=== PATIENT | male | born 1945 | race Two or more races ===

== ENCOUNTER → 2016-12-17 | Outpatient (CLI) | payer OTHER ==
[~2016-12-17] MED LIST: ATEN50TA PO; KLOR-CON PO; OME20GT; PHENERGAN; TRIA25CA PO
[2016-12-17 08:05] LABS: Basophils # (auto) 0 uL; Basophils % (auto) 0.3 % (0.0-2.0); CONDITION Y; Eosinophils # (auto) 0.2 uL; Eosinophils % (auto) 3.2 % (0.0-7.0); Hematocrit 44.7 % (41.0-53.0); Hemoglobin 15.3 g/dL (13.5-17.5); Lymphocytes # (auto) 1.8 uL; Lymphocytes % (auto) 30.2 % (10.0-50.0); Mean Corpuscular Hemoglobin 30.3 pg (28.0-32.0); Mean Corpuscular Hgb Conc. 34.2 g/dL (32.0-36.0); Mean Corpuscular Volume 88.6 fL (80.0-100.0); Mean Platelet Volume 9.3 fL (7.4-10.4); Monocytes # (auto) 0.6 uL; Monocytes % (auto) 10.5 % (0.0-12.0); Neutrophils # (auto) 3.4 uL; Neutrophils % (auto) 55.8 % (37.0-80.0); Platelet Count (auto) 212 10^3/uL (140-450)
[2016-12-17 08:25] LABS: Albumin 3.4 g/dL (3.4-5.0); Bilirubin, Total 0.5 mg/dL (0.2-1.0); Calcium 8.4 mg/dL (8.5-10.1); Potassium 3.9 mmol/L (3.5-5.1); Total Protein 6.8 g/dL (6.4-8.2)
== END | disposition home or self-care (01) ==
LOC: LAB 06:24
PROVIDERS: ATTEND Internal Medicine
DX: E11.9 Type 2 diabetes mellitus without complications (principal); I10 Essential (primary) hypertension
CPT/HCPCS: 36415; 80053; 80061; 82043; 82607; 83036; 84439; 84443; 85025; 85652

== ENCOUNTER → 2017-12-30 | Outpatient (CLI) | payer OTHER | END | disposition home or self-care (01) | LOC: XYW 08:04 | PROVIDERS: ATTEND Internal Medicine | DX: I08.2 Rheumatic disorders of both aortic and tricuspid valves (principal); R06.00 Dyspnea, unspecified; I27.20 Pulmonary hypertension, unspecified | CPT/HCPCS: 93306 ==

== ENCOUNTER → 2018-05-27 | Outpatient (CLI) | payer OTHER ==
[2018-05-27 08:14] LABS: Albumin 3.5 g/dL (3.4-5.0); Calcium 8.8 mg/dL (8.5-10.1); Potassium 4.7 mmol/L (3.5-5.1)
[2018-05-27 08:18] LABS: BUN/Creatinine Ratio 16.2; Bilirubin, Total 0.7 mg/dL (0.2-1.0); Total Protein 7.1 g/dL (6.4-8.2)
== END | disposition home or self-care (01) ==
LOC: LAB 07:24
PROVIDERS: ATTEND Internal Medicine
DX: E11.9 Type 2 diabetes mellitus without complications (principal); E78.5 Hyperlipidemia, unspecified
CPT/HCPCS: 36415; 80053; 83036; 83721

== ENCOUNTER → 2018-12-02 | Outpatient (CLI) | payer OTHER ==
[2018-12-02 09:15] LABS: Alanine Aminotransferase 60 U/L (16-61); Aspartate Aminotransferase 42 U/L (15-37); Cholesterol 178 mg/dL (< 200); HDL Cholesterol 47 mg/dL (40-59); LDL Cholesterol 103 mg/dL (< 100); Triglycerides 143 mg/dL (< 150)
== END | disposition home or self-care (01) ==
LOC: LAB 07:41
PROVIDERS: ATTEND Internal Medicine
DX: E78.00 Pure hypercholesterolemia, unspecified (principal); E11.9 Type 2 diabetes mellitus without complications
CPT/HCPCS: 36415; 80061; 83036; 84450; 84460

== ENCOUNTER → 2018-12-02 | Outpatient (CLI) | payer OTHER | END | disposition home or self-care (01) | LOC: LAB 09:12 | PROVIDERS: ATTEND Internal Medicine | DX: Z12.11 Encounter for screening for malignant neoplasm of colon (principal) | CPT/HCPCS: 82270 ==

== ENCOUNTER → 2019-09-06 | Outpatient (CLI) | payer OTHER ==
[2019-09-06 10:14] LABS: Basophils # (auto) 0 10 ^3/uL (0-0.2); Basophils % (auto) 0.6 % (0.0-2.0); Eosinophils # (auto) 0.1 10 ^3/uL (0-0.8); Hematocrit 44.4 % (41.0-53.0); Hemoglobin 15.1 g/dL (13.5-17.5); Lymphocytes # (auto) 1.3 10 ^3/uL (0.4-5.4); Lymphocytes % (auto) 19.9 % (10.0-50.0); Mean Corpuscular Hemoglobin 29.7 pg (28.0-32.0); Mean Corpuscular Hgb Conc. 33.9 g/dL (32.0-36.0); Mean Corpuscular Volume 87.5 fL (80.0-100.0); Monocytes # (auto) 0.6 10 ^3/uL (0-1.3); Monocytes % (auto) 9.2 % (0.0-12.0); Neutrophils # (auto) 4.5 10 ^3/uL (1.6-8.6); Neutrophils % (auto) 68.3 % (37.0-80.0); Nucleated Red Blood Cells % 0.1 %; Platelet Count (auto) 193 10^3/uL (140-450); Red Blood Cells 5.08 10^6/uL (4.5-5.90); Red Cell Distribution Width 13.7 % (11.8-14.3); White Blood Cell 6.6 10^3/uL (4.4-10.8)
[2019-09-06 10:57] LABS: Albumin 3.4 g/dL (3.4-5.0); Calcium 8.5 mg/dL (8.5-10.1); Potassium 3.8 mmol/L (3.5-5.1)
[2019-09-06 11:01] LABS: BUN/Creatinine Ratio 18.5; Bilirubin, Total 0.6 mg/dL (0.2-1.0); Total Protein 6.9 g/dL (6.4-8.2); Uric Acid 5.1 mg/dL (3.5-7.2)
== END | disposition home or self-care (01) ==
LOC: LAB 09:46
PROVIDERS: ATTEND Internal Medicine
DX: E11.65 Type 2 diabetes mellitus with hyperglycemia (principal); I10 Essential (primary) hypertension; M25.541 Pain in joints of right hand
CPT/HCPCS: 36415; 80053; 82043; 83036; 84439; 84443; 84550; 85025

== ENCOUNTER → 2021-02-05 | Outpatient (CLI) | payer OTHER ==
[2021-02-05 07:44] LABS: Urine Bacteria NONE SEEN /hpf (None Seen); Urine Blood Negative /uL (Negative); Urine Mucus FEW (None Seen); Urine Specific Gravity 1.025 (1.001-1.035); Urine WBC <1 /hpf (0 - 3)
[2021-02-05 07:54] LABS: Basophils # (auto) 0 10 ^3/uL (0-0.2); Basophils % (auto) 0.2 % (0.0-2.0); Eosinophils # (auto) 0.1 10 ^3/uL (0-0.8); Eosinophils % (auto) 2.9 % (0.0-7.0); Hematocrit 41.6 % (41.0-53.0); Hemoglobin 14.3 g/dL (13.5-17.5); Lymphocytes # (auto) 1.3 10 ^3/uL (0.4-5.4); Lymphocytes % (auto) 25.5 % (10.0-50.0); Mean Corpuscular Hemoglobin 30.1 pg (28.0-32.0); Mean Corpuscular Hgb Conc. 34.5 g/dL (32.0-36.0); Mean Corpuscular Volume 87.2 fL (80.0-100.0); Monocytes # (auto) 0.5 10 ^3/uL (0-1.3); Monocytes % (auto) 10.1 % (0.0-12.0); Neutrophils # (auto) 3.2 10 ^3/uL (1.6-8.6); Neutrophils % (auto) 61.3 % (37.0-80.0); Nucleated Red Blood Cells % 0.2 %; Red Blood Cells 4.77 10^6/uL (4.5-5.90); Red Cell Distribution Width 13.8 % (11.8-14.3); White Blood Cell 5.2 10^3/uL (4.4-10.8)
[2021-02-05 08:06] LABS: Albumin 3.2 g/dL (3.4-5.0); Calcium 9.2 mg/dL (8.5-10.1)
[2021-02-05 08:12] LABS: BUN/Creatinine Ratio 13.5; Bilirubin, Total 0.5 mg/dL (0.2-1.0); Total Protein 6.6 g/dL (6.4-8.2)
[2021-02-05 10:04] LABS: Free T4 (Free Thyroxine) 1.33 ng/dL (0.89-1.76); Prostate Specific Antigen 1.63 ng/mL (0.0-4.0)
== END | disposition home or self-care (01) ==
LOC: LAB 07:07
PROVIDERS: ATTEND Internal Medicine
DX: E11.9 Type 2 diabetes mellitus without complications (principal); I10 Essential (primary) hypertension
CPT/HCPCS: 36415; 80053; 80061; 81001; 82043; 82607; 83036; 84153; 84439; 84443; 85025; 85652

== ENCOUNTER 2021-05-15 16:20 | Emergency (ER) | payer OTHER ==
[~2021-05-15] VITALS: Ht 160 cm; Wt 86.2 kg
[2021-05-15 19:05] LABS: Basophils # (auto) 0 10 ^3/uL (0-0.2); Basophils % (auto) 0.5 % (0.0-2.0); Eosinophils # (auto) 0.1 10 ^3/uL (0-0.8); Eosinophils % (auto) 2.2 % (0.0-7.0); Hematocrit 37.9 % (41.0-53.0); Hemoglobin 12.8 g/dL (13.5-17.5); Lymphocytes # (auto) 1.4 10 ^3/uL (0.4-5.4); Lymphocytes % (auto) 23.3 % (10.0-50.0); Mean Corpuscular Hemoglobin 29.1 pg (28.0-32.0); Mean Corpuscular Hgb Conc. 33.9 g/dL (32.0-36.0); Mean Corpuscular Volume 85.7 fL (80.0-100.0); Monocytes # (auto) 0.7 10 ^3/uL (0-1.3); Monocytes % (auto) 11.6 % (0.0-12.0); Neutrophils # (auto) 3.7 10 ^3/uL (1.6-8.6); Neutrophils % (auto) 62.4 % (37.0-80.0); Nucleated Red Blood Cells % 0.1 %; Red Blood Cells 4.42 10^6/uL (4.5-5.90); Red Cell Distribution Width 15.3 % (11.8-14.3); White Blood Cell 5.9 10^3/uL (4.4-10.8)
[2021-05-15 19:23] LABS: Albumin 3.5 g/dL (3.4-5.0); BUN/Creatinine Ratio 17.4; Calcium 9.4 mg/dL (8.5-10.1); Potassium 4.3 mmol/L (3.5-5.1)
[2021-05-15 19:25] LABS: Bilirubin, Total 0.9 mg/dL (0.2-1.0); Total Protein 7.3 g/dL (6.4-8.2)
[2021-05-15] MEDS ORDERED: methylPREDNISolone SOD SUCC 125 MG/2 ML VL IV ONE (20:00)
[2021-05-16 03:24] LABS: Urine Bacteria NONE SEEN /hpf (None Seen); Urine Blood Negative /uL (Negative); Urine Specific Gravity 1.004 (1.001-1.035); Urine WBC 1 /hpf (0 - 3)
[2021-05-16 07:25] VITALS: BP 175/88
== END 2021-05-16 07:33 | disposition home or self-care (01) ==
LOC: ER 16:20
DX: U07.1 COVID-19 (principal); J20.9 Acute bronchitis, unspecified; E11.9 Type 2 diabetes mellitus without complications; I10 Essential (primary) hypertension; K21.9 Gastro-esophageal reflux disease without esophagitis
CPT/HCPCS: 36415; 71045; 80053; 81001; 82728; 84484; 85025; 85379; 86141; 87426; 96374; 99285; J2930

== ENCOUNTER 2021-08-30 13:25 | Emergency (ER) | payer OTHER ==
[~2021-08-30] VITALS: Ht 160 cm; Wt 86.2 kg
[2021-08-30 13:26] VITALS: BP 162/71
[2021-08-30] MEDS ORDERED: ACETAMINOPHEN 500 MG TAB PO ONE (14:00)
[2021-08-30] MEDS ORDERED: CEPH500C PO ×2 (15:21→15:23)
== END 2021-08-30 15:31 | disposition home or self-care (01) ==
LOC: ER 13:25
DX: S01.01XA Laceration without foreign body of scalp, initial encounter (principal); I10 Essential (primary) hypertension; E11.9 Type 2 diabetes mellitus without complications; K21.9 Gastro-esophageal reflux disease without esophagitis; Z79.899 Other long term (current) drug therapy; W01.198A Fall on same level from slipping, tripping and stumbling with subsequent striking against other object, initial encounter; Y93.89 Activity, other specified; Y92.89 Other specified places as the place of occurrence of the external cause; Y99.8 Other external cause status
CPT/HCPCS: 12002; 70450

== ENCOUNTER → 2021-09-09 | Outpatient (CLI) | payer OTHER ==
[~2021-09-09] MED LIST changes: +CEPH500C PO
== END | disposition home or self-care (01) ==
LOC: XYW 13:28
PROVIDERS: ATTEND Internal Medicine
DX: I08.3 Combined rheumatic disorders of mitral, aortic and tricuspid valves (principal); I48.91 Unspecified atrial fibrillation; I27.20 Pulmonary hypertension, unspecified
CPT/HCPCS: 93306

== ENCOUNTER → 2021-09-09 | Outpatient (CLI) | payer OTHER ==
[2021-09-09 07:23] LABS: Basophils # (auto) 0 10 ^3/uL (0-0.2); Basophils % (auto) 0.4 % (0.0-2.0); Eosinophils # (auto) 0.3 10 ^3/uL (0-0.8); Eosinophils % (auto) 3.5 % (0.0-7.0); Hematocrit 41.3 % (41.0-53.0); Hemoglobin 14.1 g/dL (13.5-17.5); Lymphocytes # (auto) 1.7 10 ^3/uL (0.4-5.4); Lymphocytes % (auto) 23.4 % (10.0-50.0); Mean Corpuscular Hgb Conc. 34.3 g/dL (32.0-36.0); Mean Corpuscular Volume 84.7 fL (80.0-100.0); Monocytes # (auto) 0.8 10 ^3/uL (0-1.3); Monocytes % (auto) 11.3 % (0.0-12.0); Neutrophils # (auto) 4.4 10 ^3/uL (1.6-8.6); Neutrophils % (auto) 61.4 % (37.0-80.0); Nucleated Red Blood Cells % 0.1 %; Red Blood Cells 4.87 10^6/uL (4.5-5.90); Red Cell Distribution Width 14.7 % (11.8-14.3); White Blood Cell 7.2 10^3/uL (4.4-10.8)
[2021-09-09 07:24] LABS: Urine Bacteria NONE SEEN /hpf (None Seen); Urine Blood Negative /uL (Negative); Urine Specific Gravity 1.013 (1.001-1.035); Urine WBC 6 /hpf (0 - 3)
[2021-09-09 07:46] LABS: Albumin 3.5 g/dL (3.4-5.0); Calcium 9.7 mg/dL (8.5-10.1); Potassium 4.1 mmol/L (3.5-5.1)
[2021-09-09 07:51] LABS: BUN/Creatinine Ratio 15.7; Bilirubin, Total 0.8 mg/dL (0.2-1.0); Total Protein 7.3 g/dL (6.4-8.2)
[2021-09-09 09:31] LABS: Free T4 (Free Thyroxine) 1.14 ng/dL (0.89-1.76)
[2021-09-09 09:32] LABS: Prostate Specific Antigen 2.05 ng/mL (0.0-4.0)
== END | disposition home or self-care (01) ==
LOC: LAB 06:45
PROVIDERS: ATTEND Internal Medicine
DX: I48.0 Paroxysmal atrial fibrillation (principal); E11.9 Type 2 diabetes mellitus without complications; I10 Essential (primary) hypertension
CPT/HCPCS: 36415; 80053; 80061; 81001; 82043; 82607; 83036; 83735; 84153; 84439; 84443; 85025; 85652

== ENCOUNTER → 2022-01-26 | Outpatient (CLI) | payer MEDICARE, OTHER ==
[2022-01-26 09:10] LABS: Albumin 3.5 g/dL (3.4-5.0); Potassium 4.5 mmol/L (3.5-5.1)
[2022-01-26 09:14] LABS: BUN/Creatinine Ratio 16.8; Bilirubin, Total 0.8 mg/dL (0.2-1.0); Total Protein 6.7 g/dL (6.4-8.2)
== END | disposition home or self-care (01) ==
LOC: LAB 08:08
PROVIDERS: ATTEND Internal Medicine
DX: I10 Essential (primary) hypertension (principal); I48.91 Unspecified atrial fibrillation; E11.9 Type 2 diabetes mellitus without complications
CPT/HCPCS: 36415; 80053; 83036; 83721

== ENCOUNTER → 2023-05-06 | Outpatient (CLI) | payer OTHER ==
[2023-05-06 13:25] LABS: Basophils # (auto) 0 10 ^3/uL (0-0.2); Basophils % (auto) 0.4 % (0.0-2.0); Eosinophils # (auto) 0.1 10 ^3/uL (0-0.8); Eosinophils % (auto) 1.3 % (0.0-7.0); Hematocrit 42.9 % (41.0-53.0); Hemoglobin 14.3 g/dL (13.5-17.5); Lymphocytes # (auto) 1.3 10 ^3/uL (0.4-5.4); Mean Corpuscular Hemoglobin 29.4 pg (28.0-32.0); Mean Corpuscular Hgb Conc. 33.2 g/dL (32.0-36.0); Mean Corpuscular Volume 88.5 fL (80.0-100.0); Monocytes # (auto) 0.8 10 ^3/uL (0-1.3); Monocytes % (auto) 12.4 % (0.0-12.0); Neutrophils # (auto) 3.9 10 ^3/uL (1.6-8.6); Neutrophils % (auto) 63.9 % (37.0-80.0); Red Blood Cells 4.85 10^6/uL (4.5-5.90); Red Cell Distribution Width 14.6 % (11.8-14.3); White Blood Cell 6.1 10^3/uL (4.4-10.8)
[2023-05-06 14:20] LABS: Alanine Aminotransferase 44 U/L (7-40); Albumin 4.5 g/dL (3.2-4.8); Alkaline Phosphatase 96 U/L (46-116); Anion Gap 9 (5-15); Aspartate Aminotransferase 42 U/L (13-40); BUN/Creatinine Ratio 9.7 (10.0-20.0); Blood Urea Nitrogen 10 mg/dL (9-23); Calcium 9.4 mg/dL (8.5-10.1); Carbon Dioxide 23 mmol/L (20-30); Chloride 106 mmol/L (98-107); Glucose 109 mg/dL (74-106); Sodium 138 mmol/L (136-145)
[2023-05-06 15:26] LABS: Magnesium 2.1 mg/dL (1.6-2.6)
[2023-05-06 16:27] LABS: Erythrocyte Sedimentation Rate 12 mm/hr (0-20)
== END | disposition home or self-care (01) ==
LOC: LAB 13:07
PROVIDERS: ATTEND Internal Medicine
DX: E06.5 Other chronic thyroiditis (principal); I48.20 Chronic atrial fibrillation, unspecified; R06.00 Dyspnea, unspecified
CPT/HCPCS: 36415; 80053; 83735; 84484; 85025; 85379; 85652

== ENCOUNTER → 2023-05-24 | Outpatient (CLI) | payer OTHER | END | disposition home or self-care (01) | LOC: XYW 08:01 | PROVIDERS: ATTEND Student in an Organized Health Care Education/Training Program | DX: I35.8 Other nonrheumatic aortic valve disorders (principal); R06.02 Shortness of breath | CPT/HCPCS: 93306 ==

== ENCOUNTER → 2023-07-14 | Outpatient (CLI) | payer OTHER ==
[~2023-07-14] VITALS: Ht 167.6 cm; Wt 90.7 kg
[2023-07-14] MEDS: ADENOSINE 76 MG in GIVE UN-DILUTED 0 ML IV ONE (11:07)
== END | disposition home or self-care (01) ==
LOC: XYW 09:43
PROVIDERS: ATTEND Student in an Organized Health Care Education/Training Program
DX: I13.0 Hypertensive heart and chronic kidney disease with heart failure and stage 1 through stage 4 chronic kidney disease, or unspecified chronic kidney disease (principal); I50.30 Unspecified diastolic (congestive) heart failure; N18.2 Chronic kidney disease, stage 2 (mild); R06.02 Shortness of breath; I48.21 Permanent atrial fibrillation; I77.810 Thoracic aortic ectasia; I27.20 Pulmonary hypertension, unspecified
CPT/HCPCS: 78452; 93017; A9500; J0153

== ENCOUNTER → 2023-10-01 | Outpatient (CLI) | payer OTHER ==
[2023-10-01 07:54] LABS: Chloride 109 mmol/L (98-107); Potassium 4.3 mmol/L (3.5-5.1); Sodium 142 mmol/L (136-145)
[2023-10-01 07:55] LABS: Anion Gap 5 (5-15); Calcium 9.9 mg/dL (8.5-10.1); Carbon Dioxide 28 mmol/L (20-30)
[2023-10-01 07:58] LABS: Creatinine, Urine 102.63 mg/dL (30.0-125.0)
[2023-10-01 08:00] LABS: BUN/Creatinine Ratio 13.8 (10.0-20.0); Blood Urea Nitrogen 19 mg/dL (9-23); Glucose 124 mg/dL (74-106)
== END | disposition home or self-care (01) ==
LOC: LAB 07:04
PROVIDERS: ATTEND Internal Medicine
DX: E11.39 Type 2 diabetes mellitus with other diabetic ophthalmic complication (principal)
CPT/HCPCS: 36415; 80048; 82043; 82570; 83036

== ENCOUNTER → 2023-10-07 | Outpatient (CLI) | payer OTHER ==
[2023-10-07 07:23] LABS: Basophils # (auto) 0 10 ^3/uL (0-0.2); Basophils % (auto) 0.5 % (0.0-2.0); Eosinophils # (auto) 0.2 10 ^3/uL (0-0.8); Eosinophils % (auto) 2.3 % (0.0-7.0); Hematocrit 41.3 % (41.0-53.0); Hemoglobin 13.8 g/dL (13.5-17.5); Lymphocytes # (auto) 1.4 10 ^3/uL (0.4-5.4); Lymphocytes % (auto) 21.6 % (10.0-50.0); Mean Corpuscular Hemoglobin 28.8 pg (28.0-32.0); Mean Corpuscular Hgb Conc. 33.5 g/dL (32.0-36.0); Monocytes # (auto) 0.7 10 ^3/uL (0-1.3); Neutrophils # (auto) 4.3 10 ^3/uL (1.6-8.6); Neutrophils % (auto) 64.6 % (37.0-80.0); Nucleated Red Blood Cells % 0.1 %; Red Cell Distribution Width 14.8 % (11.8-14.3); White Blood Cell 6.6 10^3/uL (4.4-10.8)
[2023-10-07 07:44] LABS: Chloride 108 mmol/L (98-107); Potassium 3.9 mmol/L (3.5-5.1); Sodium 140 mmol/L (136-145)
[2023-10-07 07:45] LABS: Anion Gap 6 (5-15); Calcium 9.6 mg/dL (8.5-10.1); Carbon Dioxide 26 mmol/L (20-30)
[2023-10-07 07:50] LABS: BUN/Creatinine Ratio 11.3 (10.0-20.0); Blood Urea Nitrogen 13 mg/dL (9-23); Glucose 124 mg/dL (74-106)
== END | disposition home or self-care (01) ==
LOC: LAB 06:56
DX: I35.0 Nonrheumatic aortic (valve) stenosis (principal)
CPT/HCPCS: 36415; 80048; 85025

== ENCOUNTER → 2023-10-21 | Outpatient (CLI) | payer OTHER ==
[2023-10-21 07:02] LABS: Urine Bacteria None Seen /hpf (None Seen)
[2023-10-21 07:15] LABS: Basophils # (auto) 0 10 ^3/uL (0-0.2); Basophils % (auto) 0.2 % (0.0-2.0); Eosinophils # (auto) 0.1 10 ^3/uL (0-0.8); Hematocrit 42.9 % (41.0-53.0); Hemoglobin 14.3 g/dL (13.5-17.5); Lymphocytes # (auto) 1.4 10 ^3/uL (0.4-5.4); Lymphocytes % (auto) 17.5 % (10.0-50.0); Mean Corpuscular Hemoglobin 28.3 pg (28.0-32.0); Mean Corpuscular Hgb Conc. 33.2 g/dL (32.0-36.0); Mean Corpuscular Volume 85.2 fL (80.0-100.0); Monocytes # (auto) 0.7 10 ^3/uL (0-1.3); Monocytes % (auto) 8.6 % (0.0-12.0); Neutrophils # (auto) 5.9 10 ^3/uL (1.6-8.6); Neutrophils % (auto) 72.7 % (37.0-80.0); Red Blood Cells 5.04 10^6/uL (4.5-5.90); Red Cell Distribution Width 15.4 % (11.8-14.3); White Blood Cell 8.1 10^3/uL (4.4-10.8)
[2023-10-21 07:16] LABS: Urine Blood Negative /uL (Negative); Urine Clarity Clear (Clear); Urine Color Light-Yellow (Yellow); Urine Protein, UAD 1+ (Negative); Urine Specific Gravity 1.018 (1.001-1.035); Urine Urobilinogen Normal (Negative); Urine WBC 2 /hpf (0 - 3)
[2023-10-21 07:55] LABS: Free T4 (Free Thyroxine) 0.89 ng/dL (0.89-1.76)
[2023-10-21 07:56] LABS: Alanine Aminotransferase 13 U/L (7-40); Albumin 4.3 g/dL (3.2-4.8); Alkaline Phosphatase 83 U/L (46-116); Anion Gap 5 (5-15); Aspartate Aminotransferase 8 U/L (13-40); BUN/Creatinine Ratio 11.4 (10.0-20.0); Bilirubin, Total 1.1 mg/dL (0.2-1.0); Blood Urea Nitrogen 13 mg/dL (9-23); Calcium 9.5 mg/dL (8.5-10.1); Carbon Dioxide 26 mmol/L (20-30); Chloride 107 mmol/L (98-107); Cholesterol 142 mg/dL (< 200); Glucose 98 mg/dL (74-106); HDL Cholesterol 39 mg/dL (40-59); LDL Cholesterol 92 mg/dL (< 100); Potassium 4.2 mmol/L (3.5-5.1); Sodium 138 mmol/L (136-145); Total Protein 6.8 g/dL (5.7-8.2); Triglycerides 126 mg/dL (< 150)
[2023-10-21 08:30] LABS: Erythrocyte Sedimentation Rate 4 mm/hr (0-20)
[2023-10-25 14:31] LABS: Creatinine, Urine < 3.00 mg/dL (30.0-125.0)
[2023-10-25 16:52] LABS: Patient Weight 189 lbs
[2023-10-25 16:53] LABS: Body Surface Area 1.95
[2023-10-25 16:54] LABS: Urine Total Volume, 24 Hours 1400 mL
[2023-10-25 17:12] LABS: Creatinine Clearance, Urine 2.19 mL/min (75-115)
== END | disposition home or self-care (01) ==
LOC: LAB 06:44
PROVIDERS: ATTEND Internal Medicine
DX: I11.0 Hypertensive heart disease with heart failure (principal); I50.30 Unspecified diastolic (congestive) heart failure; E11.9 Type 2 diabetes mellitus without complications; K86.1 Other chronic pancreatitis
CPT/HCPCS: 36415; 80053; 80061; 81001; 82043; 82575; 82607; 83036; 83880; 84439; 84443; 85025; 85652; 86301

== ENCOUNTER → 2023-11-17 | Outpatient (CLI) | payer OTHER ==
[2023-11-17 10:48] LABS: Basophils # (auto) 0.1 10 ^3/uL (0-0.2); Basophils % (auto) 0.7 % (0.0-2.0); Eosinophils # (auto) 0.1 10 ^3/uL (0-0.8); Eosinophils % (auto) 2.1 % (0.0-7.0); Hematocrit 43.7 % (41.0-53.0); Hemoglobin 14.7 g/dL (13.5-17.5); Lymphocytes # (auto) 1.5 10 ^3/uL (0.4-5.4); Lymphocytes % (auto) 21.4 % (10.0-50.0); Mean Corpuscular Hemoglobin 28.3 pg (28.0-32.0); Mean Corpuscular Hgb Conc. 33.6 g/dL (32.0-36.0); Mean Corpuscular Volume 84.4 fL (80.0-100.0); Monocytes # (auto) 0.6 10 ^3/uL (0-1.3); Monocytes % (auto) 9.2 % (0.0-12.0); Neutrophils # (auto) 4.6 10 ^3/uL (1.6-8.6); Neutrophils % (auto) 66.6 % (37.0-80.0); Red Blood Cells 5.18 10^6/uL (4.5-5.90); Red Cell Distribution Width 15.4 % (11.8-14.3)
[2023-11-17 11:04] LABS: INR 1.11 (0.9-1.15); Prothrombin Time 11.7 sec (9.3-11.8)
[2023-11-17 11:27] LABS: Alanine Aminotransferase 15 U/L (7-40); Albumin 4.2 g/dL (3.2-4.8); Alkaline Phosphatase 99 U/L (46-116); Amylase 35 U/L (30-118); Anion Gap 5 (5-15); Aspartate Aminotransferase 12 U/L (13-40); BUN/Creatinine Ratio 14.4 (10.0-20.0); Bilirubin, Total 0.8 mg/dL (0.2-1.0); Blood Urea Nitrogen 17 mg/dL (9-23); Calcium 9.7 mg/dL (8.7-10.4); Carbon Dioxide 24 mmol/L (20-30); Chloride 106 mmol/L (98-107); Glucose 259 mg/dL (74-106); Lipase 47 U/L (12-53); Potassium 4.2 mmol/L (3.5-5.1); Sodium 135 mmol/L (136-145); Total Protein 6.8 g/dL (5.7-8.2)
== END | disposition home or self-care (01) ==
LOC: LAB 10:25
PROVIDERS: ATTEND Internal Medicine Gastroenterology
DX: R93.3 Abnormal findings on diagnostic imaging of other parts of digestive tract (principal)
CPT/HCPCS: 36415; 80053; 82150; 83690; 85025; 85610; 86301

== ENCOUNTER → 2023-11-23 | Outpatient (CLI) | payer OTHER | END | disposition home or self-care (01) | LOC: LAB 08:44 | PROVIDERS: ATTEND Internal Medicine Gastroenterology | DX: R93.3 Abnormal findings on diagnostic imaging of other parts of digestive tract (principal) | CPT/HCPCS: 83497 ==

== ENCOUNTER → 2023-12-28 | Outpatient (CLI) | payer OTHER ==
[2023-12-28 07:20] LABS: Basophils # (auto) 0 10 ^3/uL (0-0.2); Basophils % (auto) 0.5 % (0.0-2.0); Eosinophils # (auto) 0.2 10 ^3/uL (0-0.8); Eosinophils % (auto) 2.2 % (0.0-7.0); Hematocrit 46.4 % (41.0-53.0); Hemoglobin 15.7 g/dL (13.5-17.5); Lymphocytes # (auto) 1.8 10 ^3/uL (0.4-5.4); Lymphocytes % (auto) 23.9 % (10.0-50.0); Mean Corpuscular Hemoglobin 28.6 pg (28.0-32.0); Mean Corpuscular Hgb Conc. 33.7 g/dL (32.0-36.0); Mean Corpuscular Volume 84.7 fL (80.0-100.0); Monocytes # (auto) 0.8 10 ^3/uL (0-1.3); Monocytes % (auto) 10.7 % (0.0-12.0); Neutrophils # (auto) 4.7 10 ^3/uL (1.6-8.6); Neutrophils % (auto) 62.7 % (37.0-80.0); Nucleated Red Blood Cells % 0.1 %; Red Blood Cells 5.48 10^6/uL (4.5-5.90); Red Cell Distribution Width 15.9 % (11.8-14.3); White Blood Cell 7.5 10^3/uL (4.4-10.8)
[2023-12-28 07:25] LABS: Chloride 103 mmol/L (98-107); Potassium 4.2 mmol/L (3.5-5.1); Sodium 138 mmol/L (136-145)
[2023-12-28 07:26] LABS: Anion Gap 7 (5-15); Calcium 9.6 mg/dL (8.7-10.4); Carbon Dioxide 28 mmol/L (20-30)
[2023-12-28 07:31] LABS: BUN/Creatinine Ratio 14.4 (10.0-20.0); Blood Urea Nitrogen 21 mg/dL (9-23); Glucose 274 mg/dL (74-106)
== END | disposition home or self-care (01) ==
LOC: LAB 06:55
DX: I35.0 Nonrheumatic aortic (valve) stenosis (principal)
CPT/HCPCS: 36415; 80048; 85025

== ENCOUNTER → 2024-01-06 | Outpatient (CLI) | payer OTHER | END | disposition home or self-care (01) | LOC: LAB 12:00 | PROVIDERS: ATTEND Internal Medicine | DX: K86.9 Disease of pancreas, unspecified (principal) | CPT/HCPCS: 36415; 82565; 84520 ==

== ENCOUNTER → 2024-01-28 | Outpatient (CLI) | payer OTHER ==
[2024-01-28 15:54] LABS: Urine Bacteria None Seen /hpf (None Seen)
[2024-01-28 16:01] LABS: Basophils # (auto) 0 10 ^3/uL (0-0.2); Basophils % (auto) 0.3 % (0.0-2.0); Eosinophils # (auto) 0.2 10 ^3/uL (0-0.8); Eosinophils % (auto) 3.1 % (0.0-7.0); Hematocrit 42.2 % (41.0-53.0); Hemoglobin 14.8 g/dL (13.5-17.5); Lymphocytes # (auto) 1.3 10 ^3/uL (0.4-5.4); Lymphocytes % (auto) 21.1 % (10.0-50.0); Mean Corpuscular Hemoglobin 29.5 pg (28.0-32.0); Mean Corpuscular Volume 84.1 fL (80.0-100.0); Monocytes # (auto) 0.5 10 ^3/uL (0-1.3); Monocytes % (auto) 8.5 % (0.0-12.0); Neutrophils # (auto) 4.1 10 ^3/uL (1.6-8.6); Nucleated Red Blood Cells % 0.1 %; Platelet Count (auto) 159 10^3/uL (140-450); Red Blood Cells 5.02 10^6/uL (4.5-5.90); Red Cell Distribution Width 15.5 % (11.8-14.3); White Blood Cell 6.2 10^3/uL (4.4-10.8)
[2024-01-28 16:06] LABS: Urine Blood Negative /uL (Negative); Urine Clarity Clear (Clear); Urine Color Light-Yellow (Yellow); Urine Protein, UAD Negative (Negative); Urine Urobilinogen 2 mg/dL (Negative); Urine WBC <1 /hpf (0 - 3); Urine pH 5.5 (5.0-9.0)
[2024-01-28 16:37] LABS: Alanine Aminotransferase 15 U/L (7-40); Albumin 4.5 g/dL (3.2-4.8); Alkaline Phosphatase 112 U/L (46-116); Anion Gap 5 (5-15); Aspartate Aminotransferase < 8 U/L (13-40); BUN/Creatinine Ratio 15.3 (10.0-20.0); Bilirubin, Total 0.9 mg/dL (0.2-1.0); Blood Urea Nitrogen 25 mg/dL (9-23); Calcium 9.8 mg/dL (8.7-10.4); Carbon Dioxide 29 mmol/L (20-30); Chloride 102 mmol/L (98-107); Glucose 322 mg/dL (74-106); Potassium 4.1 mmol/L (3.5-5.1); Sodium 136 mmol/L (136-145)
== END | disposition home or self-care (01) ==
LOC: LAB 15:37
PROVIDERS: ATTEND Internal Medicine
DX: N18.4 Chronic kidney disease, stage 4 (severe) (principal)
CPT/HCPCS: 36415; 80053; 81001; 85025

== ENCOUNTER 2024-10-12 17:21 | Inpatient (IN) | payer OTHER, MEDICAID ==
[~2024-10-12] VITALS: Ht 152.4 cm; Wt 92.6 kg
--- NOTE | 2024-10-12 17:50 | ED.PDOC ---
History of Present Illness HPI Comments 79-year-old male with PMHx DM, HTN, HLD presents with a chief complaint of chills, fever, nausea and vomiting. Patient is febrile in triage at 102.6F orally. Patient denies any abdomen pain or diarrhea, and is not currently vomiting in triage. Patients daughter reports that he had just seen his primary care provider, Dr. Gramajo, for his annual physical today and was feeling fine, but 2 hours later, began to feel symptoms. Patients blood sugar in triage was 132. Chief Complaint: Fever Time Seen by MD: 17:42 Primary Care Provider: RODERICK Reviewed Notes: Nurses Notes, Medications, Allergies Allergies: Coded Allergies: NO KNOWN ALLERGIES (Unverified , 02/21/10) Home Meds Active Scripts Cephalexin Monohydrate (Cephalexin) 500 Mg Cap, 500 MG PO QID for 7 Days, #28 CAP Prov:MAGGIE GERMAIN 08/30/21 Reported Medications [Klor-Con] No Conflict Check, 8 MG PO DAILY 09/02/12 Omeprazole (Prilosec Susp (For Gt)) 20 Mg Ss 02/21/10 [Phenergan] No Conflict Check 02/21/10 Hydrochlorothiazide W/Triamter (Hctz/Triamterene) 1 Cap Cap, 25 MG PO DAILY 02/21/10 Atenolol (Atenolol) 50 Mg Tab, 50 MG PO DAILY 02/21/10 Information Source: Patient Mode of Arrival: Ambulatory Severity: Moderate Timing: Hours Duration: Since onset Prehospital treatment: None Associated signs and symptoms The patient's complaint of fever Past Medical History PAST MEDICAL HISTORY: DM, GERD, HTN Family History Family History: Reviewed,noncontributory to illness Social History Smoker: Non-Smoker Alcohol: Denies ETOH Use Drugs: Denies Drug Use Lives In: Home Constitutional: reports: chills, fever; denies: diaphoresis, fatigue, malaise, sweats, weakness, others EENTM: denies: blurred vision, double vision, ear bleeding, ear discharge, ear drainage, ear pain, ear ringing, eye pain, eye redness, hearing loss, mouth pain, mouth swelling, nasal discharge, nose bleeding, nose congestion, nose pain, photophobia, tearing, throat pain, throat swelling, voice changes, others Respiratory: denies: cough, hemoptysis, orthopnea, SOB at rest, shortness of breath, SOB with excertion, stridor, wheezing, others Cardiovascular: denies: chest pain, dizzy spells, diaphoresis, Dyspnea on exertion, edema, irregular heart beat, left arm pain, lightheadedness, palpitations, PND, syncope, others Gastrointestinal: reports: nausea, vomiting; denies: abdomen distended, abdominal pain, blood streaked bowels, constipated, diarrhea, dysphagia, difficulty swallowing, hematemesis, melena, poor appetite, poor fluid intake, re ctal bleeding, rectal pain, others Genitourinary: denies: burning, dysuria, flank pain, frequency, hematuria, incontinence, penile discharge, penile sore, pain, testicle pain, testicle swelling, urgency, others Neurological: denies: dizziness, fainting, headache, left sided numbness, left sided weakness, numbness, paresthesia, pre-existing deficit, right sided numbness, right sided weakness, seizure, speech problems, tingling, tremors, weakness, others Musculoskeletal: denies: back pain, gout, joint pain, joint swelling, muscle pain, muscle stiffness, neck pain, others Integumetry: denies: bruises, change in color, change in hair/nails, dryness, laceration, lesions, lumps, rash, wounds, others Allergic/Immunocompromised: denies: Difficulty Healing, Frequent Infections, Hives, Itching, others Hematologic/Lymphatic: denies: anemia, blood clots, easy bleeding, easy bruising, swollen glands, others Endocrine: denies: excessive hunger, excessive sweating, excessive thirst, excessive urination, flushing, intolerance to cold, intolerance to heat, unexplained weight gain, unexplained weight loss, others Psychiatric: denies: anxiety, bipolar disorder, depression, hopeless, panic disorder, schizophrenia, sleepless, suicidal, others All Other Systems: Reviewed and Negative Physical Exam General Appearance: Moderate Distress HEENT: Pale Conjuntivae (L), Pale Conjuntivae (R), Pharynx Normal, TMs Normal Neck: Full Range of Motion, Non-Tender, Normal, Normal Inspection Respiratory: Chest Non-Tender, Decreased Breath Sounds, No Accessory Muscle Use, Respiratory Distress, Rhonchi Cardiovascular: No Edema, No JVD, No Murmur, No Gallop, Tachycardia Breast Exam: Deferred Gastrointestinal: No Organomegaly, Non Tender, No Pulsatile Mass, Normal Bowel Sounds, Soft Genitalia: Deferred Pelvic: Deferred Rectal: Deferred Extremities: No calf tenderness, Normal capillary refill, Normal inspection, Normal range of motion, Non-tender, No pedal edema Musculoskeletal : Apperance: Normal Neurologic: Alert, stone decorator II-XII nml as Tested, Motor Weakness, Normal Affect, Normal Mood, No Sensory Deficits Cerebellar Function: Unable to Test Reflexes: Normal Skin: Dry, Pallor, Warm Lymphatic: No Adenopathy Was a procedure done? Was a procedure done?: No EKG EKG : Pulse Rate (adult): 83 [place]: Normal Cardiac Rhythm: Afib Block: None Hypertrophy: None ST: Normal Differential Dx Considerations may include: Generalized weakness, pneumonia, dehydration, UTI X-Ray, Labs, Meds, VS Vital Signs Date Time Temp Pulse Resp B/P (MAP) Pulse Ox O2 Delivery O2 Flow Rate FiO2 10/12/24 19:57 97.6 93 23 154/72 (99) 96 97.6 10/12/24 19:53 93 23 96 Nasal Cannula* 3 32 10/12/24 19:14 97.6 10/12/24 18:10 100.5 10/12/24 17:55 90 26 93 Nasal Cannula* 2 28 10/12/24 17:55 100.5 82 26 169/85 (113) 92 100.5 10/12/24 17:52 83 10/12/24 17:49 83 10/12/24 17:32 102.6 94 24 167/95 (119) 93 102.6 Lab Test 10/12/24 19:29 10/12/24 18:42 10/12/24 18:18 10/12/24 17:52 Range/Units Troponin I High Sensitivity 8 5 </=54 ng/L SARS-CoV-2 Antigen (Rapid) Negative NEGATIVE White Blood Count 13.3 H 4.4-10.8 10^3/uL Red Blood Count 5.70 4.5-5.90 10^6/uL Hemoglobin 16.7 13.5-17.5 g/dL Hematocrit 49.3 41.0-53.0 % Mean Corpuscular Volume 86.5 80.0-100.0 fL Mean Corpuscular Hemoglobin 29.3 28.0-32.0 pg Mean Corpuscular Hemoglobin Concent 33.8 32.0-36.0 g/dL Red Cell Distribution Width 14.0 11.8-14.3 % Platelet Count 159 140-450 10^3/uL Mean Platelet Volume 9.2 6.9-10.8 fL Neutrophils (%) (Auto) 37.0-80.0 % Lymphocytes (%) (Auto) 10.0-50.0 % Monocytes (%) (Auto) 0.0-12.0 % Basophils (%) (Auto) 0.0-2.0 % Neutrophils # (Auto) 1.6-8.6 10 ^3/uL Lymphocytes # (Auto) 0.4-5.4 10 ^3/uL Monocytes # (Auto) 0-1.3 10 ^3/uL Differential Total Cells Counted 100.0 100 Neutrophils % (Manual) 83 H 37.0-80.0 Band Neutrophils % (Manual) 3 Lymphocytes % (Manual) 5 L 10.0-50.0 Monocytes % (Manual) 9 0-12 Eosinophils % (Manual) 0 0-7 Basophils % (Manual) 0 0.0-2.0 Metamyelocytes % (manual) 0 Myelocytes % (Manual) 0 Promyelocytes % (Manual) 0 Blast Cells % (Manual) 0 Reactive Lymphocytes 0 Platelet Estimate Adequate Anisocytosis (manual) Slight Sodium Level 140 136-145 mmol/L Potassium Level 3.9 3.5-5.1 mmol/L Chloride Level 108 H 98-107 mmol/L Carbon Dioxide Level 22 20-31 mmol/L Anion Gap 10 5-15 Blood Urea Nitrogen 17 9-23 mg/dL Creatinine 1.11 0.700-1.30 mg/dL Glomerular Filtration Rate Calc 67 >90 mL/min BUN/Creatinine Ratio 15.3 10.0-20.0 Serum Glucose 137 H 74-106 mg/dL Lactic Acid Level 2.0 0.4-2.0 mmol/L Calcium Level 10.9 H 8.7-10.4 mg/dL Urine Color Light-yellow Yellow Urine Clarity Clear Clear Urine pH 6.0 5.0-9.0 Urine Specific [place] 1.016 1.001-1.035 Urine Protein Trace H Negative Urine Ketones Negative Negative Urine Blood 1+ H Negative /uL Urine Nitrite Negative Negative Urine Bilirubin Negative Negative Urine Urobilinogen Normal Negative mg/dL Urine Leukocyte Esterase Negative Negative /uL Urine RBC 4 0 - 3 /hpf Urine Microscopic WBC 1 0-3 /HPF Urine Squamous Epithelial Cells None seen <5 /hpf Urine Bacteria None seen None Seen /hpf Urine Glucose Normal Normal mg/dL Test 10/12/24 17:36 Range/Units POC Glucose 132 H 70-106 mg/dl Current Medications Medications (Trade) Dose Ordered Sig/Radhika Route Start Time Stop Time Status Last Admin Acetaminophen (Tylenol Tablet) 650 mg ONCE ONCE PO 10/12/24 18:00 10/12/24 18:01 DC 10/12/24 18:10 Sodium Chloride 500 ml @ 500 mls/hr Q1H ONCE IVB 10/12/24 18:15 10/12/24 19:14 DC 10/12/24 18:15 Ceftriaxone Sodium 50 ml @ 100 mls/hr ONCE ONCE IV 10/12/24 19:00 10/12/24 19:29 DC 10/12/24 19:00 Vancomycin HCl 200 ml @ 200 mls/hr ONCE ONCE IV 10/12/24 19:00 10/12/24 19:59 DC 10/12/24 19:36 IV Hep-Lock was established The patient was given normal saline as a bolus. With a fever, the patient was given acetaminophen 650 mg p.o. The patient's CBC shows an elevated white blood cell count of 13.3 The rest of the CBC is within normal limits The chemistry panel is within normal limits. The urine test is negative At this time, the troponin level x2 is within normal range The chest x-ray shows: LUNGS: Central pulmonary vascular congestion. Prominence of bronchovascular ma rkings versus infiltrate in bilateral lung bases The CAT scan of the chest was also ordered in his negative The patient was started on Rocephin and vancomycin The patient is being admitted at this time Images Reviewed?: Images reviewed and evaluated by me Time of 1ST Reevaluation: 18:12 Reevaluation 1ST: Unchanged Patient Education/Counseling: Diagnosis, Treatment, Prognosis Family Education/Counseling: Diagnosis, Treatment, Prognosis Sepsis Sepsis Reasesment Focused Exam Orders: Laboratory Tests 10/12/24 18:18: Lactic Acid Level 2.0 Departure 1 Departure Time of Disposition: 20:29 Impression: Primary Impression: Generalized weakness Additional Impressions: Fever Qualified Codes: R50.9 - Fever, unspecified Diabetes Qualified Codes: E13.9 - Other specified diabetes mellitus without complications Disposition: 09 ADMITTED INPATIENT Admit to: Tele Condition: Fair Critical Care Note Critical Care Time?: Yes (45 min-critical care time only) Stability Stability form required: Yes Unstable for transfer: Telemetry monitoring (Telemetry monitoring required), ED Physician Assesment (Clinical assesment) Heart Score Heart Score: Heart Score Response (Comments) Value History N/A 0 EKG N/A 0 Age N/A 0 Risk Factors N/A 0 Troponin N/A 0 Total 0 I personally scribed for ANDREA ESTRADA MD ([email or web address]) on 10/12/24 at 17:50. Electronically submitted by Igor Erickson ([email or web address]). I personally scribed for ANDREA ESTRADA MD ([email or web address]) on 10/12/24 at 17:52. Electronically submitted by Igor Erickson ([email or web address]). ANDREA ESTRADA MD October 12, 2024 17:50
[2024-10-12 17:55] VITALS: PULSE 90; RESP 26; O2SAT 93
[2024-10-12] MEDS: ACETAMINOPHEN 325 MG TAB PO ONE (18:10)
[2024-10-12] MEDS: SODIUM CHLORIDE 0.9% 500 ML IVB ONE (18:15)
[2024-10-12 18:44] LABS: Hematocrit 49.3 % (41.0-53.0); Hemoglobin 16.7 g/dL (13.5-17.5); Mean Corpuscular Hemoglobin 29.3 pg (28.0-32.0); Mean Corpuscular Hgb Conc. 33.8 g/dL (32.0-36.0); Mean Corpuscular Volume 86.5 fL (80.0-100.0); Platelet Count (auto) 159 10^3/uL (140-450); White Blood Cell 13.3 10^3/uL (4.4-10.8)
[2024-10-12 18:45] LABS: Urine Bacteria None Seen /hpf (None Seen)
[2024-10-12 18:49] LABS: Basophils % (manual) 0 (0.0-2.0); Blast Cells 0; Eosinophils % (manual) 0 (0-7); Metamyelocytes % 0; Myelocytes % 0; Promyelocytes % 0; Reactive Lymphocytes 0
[2024-10-12 18:50] LABS: Potassium 3.9 mmol/L (3.5-5.1); Sodium 140 mmol/L (136-145)
[2024-10-12 18:51] LABS: Anion Gap 10 (5-15); Calcium 10.9 mg/dL (8.7-10.4); Carbon Dioxide 22 mmol/L (20-31); Chloride 108 mmol/L (98-107)
--- NOTE | 2024-10-12 18:53 | DVH ---
EXAM: XY CHEST PORTABLE REASON FOR EXAM: weakness TECHNIQUE: 1 view of the chest COMPARISON: CHEST PORTABLE on DOS: 05/15/21 FINDINGS/IMPRESSION: LUNGS: Central pulmonary vascular congestion. Prominence of bronchovascular markings versus infiltrat e in bilateral lung bases MEDIASTINUM: Unremarkable BONES: No acute osseous abnormality OTHER: None
[2024-10-12 18:56] LABS: BUN/Creatinine Ratio 15.3 (10.0-20.0); Blood Urea Nitrogen 17 mg/dL (9-23); Glucose 137 mg/dL (74-106)
[2024-10-12] MEDS: cefTRIAXone 1GM/50ML D5W 50 ML IV ONE (19:00)
[2024-10-12 19:06] LABS: Urine Blood 1+ /uL (Negative); Urine Clarity Clear (Clear); Urine Color Light-Yellow (Yellow); Urine Protein, UAD TRACE (Negative); Urine Specific Gravity 1.016 (1.001-1.035); Urine Squamous Epithelial Cell None Seen /hpf (<5); Urine Urobilinogen Normal (Negative); Urine WBC 1 /HPF (0-3)
--- NOTE | 2024-10-12 19:19 | DVH ---
Procedure: CT CHEST WITHOUT CONTRAST Reason for study/Clinical History: PNA Comparison Study: None Exam Date: 10/12/2024 06:35 PM TECHNIQUE: Multidetector CT of the chest was performed from the lung apices to the upper abdomen with out the use of intravenous contract. Axial, coronal and sagittal multiplanar reformats were performed . Radiation Dose Information: CT Dose: CTDI volume is 29.2 mGy. Dose-length product is 1061.99 mGy*cm The dose indicators for CT are the volume Computed Tomography (CT) Dose Index (CTDIvol) and the Dose Length Product (DLP), and are measured in units of mGy and mGy-cm, respectively. These indicators are not patient dose, but values generated from the CT scanner acquisition factors. The report includes radiation exposure data for exposures received during this examination. FINDINGS: Lower neck: Normal thyroid. Lungs: No focal consolidation, pleural effusion or pneumothorax. Heart/Vascular Structures: Normal heart size. No pericardial effusion. TAVR device in place Lymph Nodes: No adenopathy Pleura: No pleural effusion or significant pneumothorax. Musculoskeletal: No acute osseous abnormality. Soft tissues: Normal. Upper abdomen: Limited portions of the upper abdomen are unremarkable. IMPRESSION: 1. No acute intrathoracic abnormality. Radiation optimization: All CT scans at this facility use at least one of these dose optimization jorge hniques: automated exposure control mA and/or kV adjustment per patient size (includes targeted exam s where dose is matched to clinical indication) or iterative reconstruction.
[2024-10-12 19:21] LABS: Anisocytosis Slight; Band Neutrophils % (manual) 3; Lymphocytes % (manual) 5 (10.0-50.0); Monocytes % (manual) 9 (0-12); Platelet Estimate Adequate
[2024-10-12 19:34] LABS: COVID19 ANTIGEN SOFIA FIA NEGATIVE (NEGATIVE)
[2024-10-12] MEDS: VANCOMYCIN 1GM/200ML PM 200 ML IV ONE (19:36)
[2024-10-12 19:53] VITALS: PULSE 93; RESP 23; O2SAT 96
[2024-10-12] MEDS ORDERED: hydrALAZINE HCL 20 MG/ML VL IV PRN (21:30)
[2024-10-12] MEDS ORDERED: ONDANSETRON HCL 4 MG/2 ML VIAL IV PRN (21:30)
[2024-10-12] MEDS ORDERED: DEXTROSE (50%) 50ML SYRG IV PRN (21:30)
[2024-10-12] MEDS ORDERED: DOCUSATE SOD 100 MG CAP PO PRN (21:30)
[2024-10-12] MEDS ORDERED: HYDROcodone-ACET 5/325MG TAB PO PRN (21:30)
[2024-10-12] MEDS ORDERED: ACETAMINOPHEN 325 MG TAB PO PRN (21:30)
--- NOTE | 2024-10-12 21:39 | DVHHP2 ---
History of Present Illness Reason for Visit: Generalized weakness History of Present Illness The patient is a 79-year-old male with past medical history of GERD, hypertension, and diabetes mellitus who presented to [facility] ED with complaint of fever. Patient/family member reports he has been experiencing fever associated with chills, nausea, vomiting, getting worse that prompted this visit. Patient was seen and evaluated in the ED, laboratory data shows WBC 13.3, platelets 159, sodium 140, potassium 3.9, BUN 17, creatinine 1.11, glucose 137, calcium 10.9, lactic acid 2.0, troponin 8, blood pressure 154/72, heart rate 94, temperature 100.5 F trending down to 97.6 F, O2 saturation 96% on oxygen. Chest x-ray revealing central pulmonary vascular congestion, prominence of bronchovascular marking versus infiltrate in bilateral lung bases. Patient was started on IV antibiotic regimen Rocephin, please see medication orders section in the computer. On my assessment, patient denied chest pain, no headache, no dizziness, no diaphoresis, currently on oxygen, no nausea, no vomiting, no fever or chills at this moment. Patient was admitted for further evaluation and medical management. Past Medical History DM, GERD, HTN Past Surgical History Denies all surgeries Family History Reviewed, noncontributory to the management of this case. Past Social History The patient lives at home, denies smoking, alcohol or illicit drugs abuse. Review of Systems Constitutional: Yes: Fever, Chills, Weakness; No: Sweats, Malaise, Other Eyes: No: Pain, Vision change, Conjunctivae inflammation, Eyelid inflammation, Other, Redness ENT: No: Ear pain, Ear discharge, Nose pain, Nose discharge, Nose congestion, Mouth pain, Mouth swelling, Throat pain, Throat swelling, Other Respiratory: Shortness of breath; No: Cough, Dry, SOB with excertion, Wheezing, Hemoptysis, Pleuritic Pain, Sputum, Wheezing, Other Cardiovascular: No: Chest Pain, Palpitations, Orthopnea, Paroxysmal Noc. Dyspnea, Edema, Lt Headedness, Other Gastrointestinal: Nausea, Vomiting; No: Abdominal Pain, Diarrhea, Constipation, Melena, Hematochezia, Other Genitourinary: No Dysuria, No Frequency, No Incontinence, No Hematuria, No Retention, No Other Musculoskeletal: No: other, neck pain, shoulder pain, arm pain, back pain, hand pain, leg pain, foot pain Skin: No: Rash, Lesions, Jaundice, Bruising, Other Neurological: No: Weakness, Numbness, Incoordination, Change in speech, Confusion, Seizures, Other Allergies: Coded Allergies: NO KNOWN ALLERGIES (Unverified , 02/21/10) Medications Current Medications Medications Dose Ordered Sig/Radhika Route Start Time Stop Time Status Last Admin Dose Admin Ceftriaxone Sodium 50 ml @ 100 mls/hr DAILY@09 IV 10/13/24 09:00 UNV Azithromycin 250 ml @ 125 mls/hr DAILY IV 10/13/24 10:00 UNV Atenolol 50 mg DAILY PO 10/13/24 10:00 UNV Hydralazine HCl 10 mg Q6HP PRN IV 10/12/24 21:30 UNV Famotidine 20 mg DAILY IV 10/13/24 10:00 UNV Diagnostic Test (Pha) 1 strip ACHS 10/12/24 22:00 UNV Insulin Human Regular ACHS SC 10/12/24 22:00 UNV Dextrose 50 ml UD PRN IV 10/12/24 21:30 UNV Sodium Chloride 10 ml Q8HR IV 10/12/24 22:00 UNV Acetaminophen/ Hydrocodone Bitart 1 tab Q4HP PRN PO 10/12/24 21:30 UNV Ondansetron HCl 4 mg Q4HP PRN IV 10/12/24 21:30 UNV Docusate Sodium 100 mg BIDPRN PRN PO 10/12/24 21:30 UNV Acetaminophen 650 mg Q6HP PRN PO 10/12/24 21:30 UNV Exam Vital Signs Vital Signs Date Time Temp Pulse Resp B/P (MAP) Pulse Ox O2 Delivery O2 Flow Rate FiO2 10/12/24 19:57 97.6 93 23 154/72 (99) 96 97.6 10/12/24 19:53 Nasal Cannula* 3 32 General Appearance: Alert, Oriented X3, Cooperative, No acute distress HEENT: Atraumatic, PERRLA, EOMI, Mucous membr. moist/pink Respiratory: Normal air movement, Other (Diminished breath sounds) Cardiovascular: Regular rate, Normal S1, Normal S2, No murmurs Abdominal: Normal bowel sounds, Soft, No tenderness, No hepatospenomegaly, No masses Extremities: No clubbing, No cyanosis, No edema, Normal pulses, No tenderness/swelling Skin: No rashes, No breakdown, No significant lesion Neuro: Normal speech, Normal tone, Sensation intact, Cranial nerves 3-12 NL, Reflexes 2+, Other (Generalized weakness) Psych/Mental Status: Mental status NL, Mood NL Labs/Xrays Labs Test 10/12/24 21:13 10/12/24 18:42 10/12/24 18:18 10/12/24 17:52 Range/Units Troponin I High Sensitivity 12 </=54 ng/L SARS-CoV-2 Antigen (Rapid) Negative NEGATIVE White Blood Count 13.3 H 4.4-10.8 10^3/uL Red Blood Count 5.70 4.5-5.90 10^6/uL Hemoglobin 16.7 13.5-17.5 g/dL Hematocrit 49.3 41.0-53.0 % Mean Corpuscular Volume 86.5 80.0-100.0 fL Mean Corpuscular Hemoglobin 29.3 28.0-32.0 pg Mean Corpuscular Hemoglobin Concent 33.8 32.0-36.0 g/dL Red Cell Distribution Width 14.0 11.8-14.3 % Platelet Count 159 140-450 10^3/uL Mean Platelet Volume 9.2 6.9-10.8 fL Neutrophils (%) (Auto) 37.0-80.0 % Lymphocytes (%) (Auto) 10.0-50.0 % Monocytes (%) (Auto) 0.0-12.0 % Basophils (%) (Auto) 0.0-2.0 % Neutrophils # (Auto) 1.6-8.6 10 ^3/uL Lymphocytes # (Auto) 0.4-5.4 10 ^3/uL Monocytes # (Auto) 0-1.3 10 ^3/uL Differential Total Cells Counted 100.0 100 Neutrophils % (Manual) 83 H 37.0-80.0 Band Neutrophils % (Manual) 3 Lymphocytes % (Manual) 5 L 10.0-50.0 Monocytes % (Manual) 9 0-12 Eosinophils % (Manual) 0 0-7 Basophils % (Manual) 0 0.0-2.0 Metamyelocytes % (manual) 0 Myelocytes % (Manual) 0 Promyelocytes % (Manual) 0 Blast Cells % (Manual) 0 Reactive Lymphocytes 0 Platelet Estimate Adequate Anisocytosis (manual) Slight Sodium Level 140 136-145 mmol/L Potassium Level 3.9 3.5-5.1 mmol/L Chloride Level 108 H 98-107 mmol/L Carbon Dioxide Level 22 20-31 mmol/L Anion Gap 10 5-15 Blood Urea Nitrogen 17 9-23 mg/dL Creatinine 1.11 0.700-1.30 mg/dL Glomerular Filtration Rate Calc 67 >90 mL/min BUN/Creatinine Ratio 15.3 10.0-20.0 Serum Glucose 137 H 74-106 mg/dL Lactic Acid Level 2.0 0.4-2.0 mmol/L Calcium Level 10.9 H 8.7-10.4 mg/dL Urine Color Light-yellow Yellow Urine Clarity Clear Clear Urine pH 6.0 5.0-9.0 Urine Specific [place] 1.016 1.001-1.035 Urine Protein Trace H Negative Urine Ketones Negative Negative Urine Blood 1+ H Negative /uL Urine Nitrite Negative Negative Urine Bilirubin Negative Negative Urine Urobilinogen Normal Negative mg/dL Urine Leukocyte Esterase Negative Negative /uL Urine RBC 4 0 - 3 /hpf Urine Microscopic WBC 1 0-3 /HPF Urine Squamous Epithelial Cells None seen <5 /hpf Urine Bacteria None seen None Seen /hpf Urine Glucose Normal Normal mg/dL Test 10/12/24 17:36 Range/Units POC Glucose 132 H 70-106 mg/dl PATIENT: AZ MURILLOACCT: [id number] UNIT: [id number] : 1945 LOC: ER ROOM / BED: / AGE / SEX: 79 / M ADM STATUS: REG ER SERVICE 14 ORDERING PHYSICIAN: DUTCH ALBERT MD PROCEDURE(s): CX2CT - CHEST WITHOUT CONTRAST REASON: PNA ORDER NUMBER(s): [id number], ACCESSION NUMBER(s): [id number] Procedure: CT CHEST WITHOUT CONTRAST Reason for study/Clinical History: PNA Comparison Study: None Exam Date: 10/12/2024 06:35 PM TECHNIQUE: Multidetector CT of the chest was performed from the lung apices to the upper abdomen without the use of intravenous contract. Axial, coronal and sagittal multiplanar reformats were performed. Radiation Dose Information: CT Dose: CTDI volume is 29.2 mGy. Dose-length product is 1061.99 mGy*cm The dose indicators for CT are the volume Computed Tomography (CT) Dose Index (CTDIvol) and the Dose Length Product (DLP), and are measured in units of mGy an d mGy-cm, respectively. These indicators are not patient dose, but values generated from the CT scanner acquisition factors. The report includes radiation exposure data for exposures received during this examination. FINDINGS: Lower neck: Normal thyroid. Lungs: No focal consolidation, pleural effusion or pneumothorax. Heart/Vascular Structures: Normal heart size. No pericardial effusion. TAVR device in place Lymph Nodes: No adenopathy Pleura: No pleural effusion or significant pneumothorax. Musculoskeletal: No acute osseous abnormality. Soft tissues: Normal. Upper abdomen: Limited portions of the upper abdomen are unremarkable. IMPRESSION: 1. No acute intrathoracic abnormality. ORDERING PHYSICIAN: ANDREA ESTRADA MD PROCEDURE(s): CXRP - CHEST PORTABLE REASON: weakness ORDER NUMBER(s): [id number], ACCESSION NUMBER(s): [id number] EXAM: XY CHEST PORTABLE REASON FOR EXAM: weakness TECHNIQUE: 1 view of the chest COMPARISON: CHEST PORTABLE on DOS: 05/15/21 FINDINGS/IMPRESSION: LUNGS: Central pulmonary vascular congestion. Prominence of bronchovascular markings versus infiltrate in bilateral lung bases MEDIASTINUM: Unremarkable BONES: No acute osseous abnormality Assessment/Plan Assessment/Plan Generalized weakness Diabetes mellitus with hyperglycemia Fever, unspecified Leukocytosis, unspecified Pneumonia, unspecified organism Other specified diabetes mellitus without complications Plan 1. Admit to telemetry unit 2. Breathing treatment 3. Pain control management 4. IV antibiotic management 5. Management of fluids and electrolytes 6. Consultation for hospitalist 7. Diagnostic test chest x-ray 8. DVT prophylaxis-on aspirin 9. Repeat labs CBC, CMP in a.m. 10. Home medication reviewed and reconciled 11. Continue with current medical management 12. Treatment plan discussed with patient and RN. Patient verbalized understanding. Plan discussed with: Patient, Other (RN) My Orders Orders - RIYA HURLEY DNP Procedure Category Date Status Time Consistent DIET 10/13/24 Transmitted Carb(Ccho)Diabetes Breakfast Ceftriaxone 1gm/50ml PHA 10/13/24 Logged D5w (Rocephin) 09:00 Azithromycin 500mg/ PHA 10/13/24 Logged 250ml (Zithromax 50 10:00 Atenolol Tablet PHA 10/13/24 Logged (Tenormin Tablet) 10:00 Hydralazine Injection PHA 10/12/24 Logged (Apresoline Inject 21:30 Famotidine Injection PHA 10/13/24 Logged (Pepcid Injection) 10:00 Glucose Blood PHA 10/12/24 Logged (Accu-Chek Comfort 22:00 Insulin R (Human) PHA 10/12/24 Logged (Insulin R) 22:00 Dextrose 50% Syringe PHA 10/12/24 Logged 21:30 Allergies [facility] 10/12/24 In Process 21:26 Code Status CODE 10/12/24 Transmitted 21:26 Sodium Chloride Lock PHA 10/12/24 Logged (Saline Lock Ns) 22:00 Oxygen Per Hour RT 10/12/24 Transmitted 21:26 Hydrocodone-Acet [facility] 10/12/24 Logged 5/325mg Tab ([place] 21:30 Ondansetron Hcl PHA 10/12/24 Logged (Zofran) 21:30 Docusate Sodium [facility] 10/12/24 Logged Capsule (Colace 21:30 Complete Blood Count LAB 10/13/24 Verified 04:00 Comprehensive LAB 10/13/24 Verified Metabolic Panel 04:00 Condition: Serious [facility] 10/12/24 In Process 21:26 Acetaminophen Tablet [facility] 10/12/24 Logged (Tylenol Tablet) 21:30 Bedrest With Bathroom [facility] 10/12/24 In Process Privileg 21:26 Sequential [facility] 10/12/24 In Process Compression Device Admit ADMIT 10/12/24 Verified 21:37 Nitroglycerin [facility] 10/12/24 Verified Sublingual (Ntrostat 21:45 Morphine Sulfate [facility] 10/12/24 Verified Injection 21:45 Stat Ekg For Chest [facility] 10/12/24 Verified Pain 21:37 Notify Md Of Changes [facility] 10/12/24 Verified From Base 21:37 Distillery Miller For [facility] 10/12/24 Verified 24 Hours 21:37 Emergency Dysrhythmia [facility] 10/12/24 Verified Protocol 21:37 Rhythm Strips Once [facility] 10/12/24 Verified Every Shift 21:37 Oxygen By Nasal RT 10/12/24 Verified Cannula 21:37 Problem List: (1) Generalized weakness (2) Diabetes mellitus with hyperglycemia (3) Fever, unspecified (4) Leukocytosis, unspecified (5) Pneumonia, unspecified organism (6) Other specified diabetes mellitus without complications Date of Service: October 12, 2024 Billing Provider: RIYA HURLEY DNP Common Visit Codes: [id number] INP/OBS CARE (HIGH) RIYA HURLEY DNP October 12, 2024 21:39
[2024-10-12] MEDS ORDERED: NITROGLYCERIN 0.4 MG SL TAB SL PRN (21:45)
[2024-10-12] MEDS ORDERED: MORPHINE SULFATE INJ 2 MG/ml SYRG IV PRN (21:45)
[2024-10-12] MEDS: ACCU-CHEK COMFORT CURVE STRIP VI SCH (22:00)
[2024-10-12] MEDS: InsuLIN REG 1unit/0.01ml Soln (100units/ml) SC SCH (22:00)
[2024-10-12] MEDS: SODIUM CHLOR 0.9% PF (SALINE LOCK) 10ML VIAL/SYR IV SCH (22:00)
[2024-10-12 22:41] LABS: Rapid Influenza A Negative (Negative); Rapid Influenza B Negative (Negative)
[2024-10-13] VITALS (12 sets, daily range): BP systolic 92–127; BP diastolic 43–68; PULSE 44–95; RESP 17–20; TEMP 98.1–99.3; O2SAT 90–100
[2024-10-13 08:31] LABS: Basophils # (auto) 0 10 ^3/uL (0-0.2); Basophils % (auto) 0.1 % (0.0-2.0); Eosinophils # (auto) 0 10 ^3/uL (0-0.8); Hematocrit 43.8 % (41.0-53.0); Lymphocytes # (auto) 0.2 10 ^3/uL (0.4-5.4); Lymphocytes % (auto) 1.7 % (10.0-50.0); Mean Corpuscular Hemoglobin 29.6 pg (28.0-32.0); Mean Corpuscular Hgb Conc. 34.2 g/dL (32.0-36.0); Mean Corpuscular Volume 86.6 fL (80.0-100.0); Monocytes # (auto) 0.5 10 ^3/uL (0-1.3); Monocytes % (auto) 3.7 % (0.0-12.0); Neutrophils # (auto) 12.3 10 ^3/uL (1.6-8.6); Neutrophils % (auto) 94.5 % (37.0-80.0); Platelet Count (auto) 127 10^3/uL (140-450); Red Blood Cells 5.06 10^6/uL (4.5-5.90); Red Cell Distribution Width 14.2 % (11.8-14.3); White Blood Cell 13.1 10^3/uL (4.4-10.8)
[2024-10-13 08:51] LABS: Alanine Aminotransferase 19 U/L (7-40); Albumin 4.1 g/dL (3.2-4.8); Alkaline Phosphatase 75 U/L (46-116); Anion Gap 9 (5-15); Aspartate Aminotransferase 22 U/L (13-40); BUN/Creatinine Ratio 16.3 (10.0-20.0); Bilirubin, Total 1.2 mg/dL (0.2-1.0); Blood Urea Nitrogen 15 mg/dL (9-23); Calcium 9.6 mg/dL (8.7-10.4); Carbon Dioxide 22 mmol/L (20-31); Glucose 93 mg/dL (74-106); Potassium 3.6 mmol/L (3.5-5.1); Sodium 141 mmol/L (136-145); Total Protein 6.4 g/dL (5.7-8.2)
[2024-10-13 09:00] LABS: Chloride 110 mmol/L (98-107)
[2024-10-13] MEDS: FAMOTIDINE (10MG/ML) 2ML VL IV SCH (09:54)
[2024-10-13] MEDS: ATENOLOL 25 MG TAB PO SCH (09:55)
[2024-10-13] MEDS: cefTRIAXone 1GM/50ML D5W 50 ML IV SCH (09:56)
[2024-10-13] MEDS: AZITHROMYCIN 500MG/ 250ML 250 ML IV SCH (09:56)
--- NOTE | 2024-10-13 13:08 | DVHPN2 ---
Subjective Seen and examined at bedside, family at bedside. Patient has 2 bottles that are positive for Gram Positive. Will add Vancomycin. Repeat blood cultures. Will get sputum sample. Changes from previous H/P or p: No Changes Eyes: No Pain, No Vision change, No Conjunctivae inflammation, No Eyelid inflammation, No Other, No Redness ENT: No Ear pain, No Ear discharge, No Nose pain, No Nose discharge, No Nose congestion, No Mouth pain, No Mouth swelling, No Throat pain, No Throat swelling, No Other Cardiovascular: No Chest Pain, No Palpitations, No Orthopnea, No Paroxysmal Noc. Dyspnea, No Edema, No Lt Headedness, No Other Respiratory: No Cough, No Dry; Shortness of breath; No SOB with excertion, No Wheezing, No Hemoptysis, No Pleuritic Pain, No Sputum, No Other Gastrointestinal: No Nausea, No Vomiting, No Abdominal Pain, No Diarrhea, No Constipation, No Melena, No Hematochezia, No Other Genitourinary: No Dysuria, No Frequency, No Incontinence, No Hematuria, No Retention, No Other Musculoskeletal: No other, No neck pain, No shoulder pain, No arm pain, No back pain, No hand pain, No leg pain, No foot pain Skin: No Rash, No Lesions, No Jaundice, No Bruising, No Other Objective Vitals Vital Signs Date Time Temp Pulse Resp B/P (MAP) Pulse Ox O2 Delivery O2 Flow Rate FiO2 10/13/24 09:55 63 118/68 10/13/24 09:30 99.3 18 96 99.3 10/13/24 08:00 Nasal Cannula* 3 32 Intake/Output Intake and Output 10/13/24 07:00 Intake Total 850 ml Balance 850 ml Intake Oral 100 ml IV Total 750 ml General Appearance: Alert, Oriented X3, Cooperative, No acute distress Lungs: Clear to auscultation Cardiovascular: Regular rate, Normal S1, Normal S2 Abdomen: Normal bowel sounds, Soft Psych/Mental Status: Mental status NL Medications Current Medications Medications Dose Ordered Sig/Radhika Route Start Time Stop Time Status Last Admin Dose Admin Ceftriaxone Sodium 50 ml @ 100 mls/hr DAILY@09 IV 10/13/24 09:00 10/13/24 09:56 100 MLS/HR Azithromycin 250 ml @ 125 mls/hr DAILY IV 10/13/24 10:00 10/13/24 09:56 125 MLS/HR Atenolol 50 mg DAILY PO 10/13/24 10:00 10/13/24 09:55 50 MG Hydralazine HCl 10 mg Q6HP PRN IV 10/12/24 21:30 Famotidine 20 mg DAILY IV 10/13/24 10:00 10/13/24 09:54 20 MG Diagnostic Test (Pha) 1 strip ACHS 10/12/24 22:00 10/13/24 11:30 1 STRIP Insulin Human Regular ACHS SC 10/12/24 22:00 10/13/24 11:30 2 UNITS Dextrose 50 ml UD PRN IV 10/12/24 21:30 Sodium Chloride 10 ml Q8HR IV 10/12/24 22:00 10/13/24 06:17 10 ML Acetaminophen/ Hydrocodone Bitart 1 tab Q4HP PRN PO 10/12/24 21:30 Ondansetron HCl 4 mg Q4HP PRN IV 10/12/24 21:30 Docusate Sodium 100 mg BIDPRN PRN PO 10/12/24 21:30 Acetaminophen 650 mg Q6HP PRN PO 10/12/24 21:30 Nitroglycerin 0.4 mg Q5MINP PRN SL 10/12/24 21:45 Morphine Sulfate 2 mg Q30M PRN IV 10/12/24 21:45 Vancomycin HCl 0 ml @ 0 mls/hr UD IV 10/13/24 13:15 UNV Laboratory Results Laboratory Tests 10/13/24 07:40 Chemistry Test 10/12/24 18:18 10/13/24 07:40 Calcium Level 10.9 mg/dL (8.7-10.4) H 9.6 mg/dL (8.7-10.4) Albumin 4.1 g/dL (3.2-4.8) Total Protein 6.4 g/dL (5.7-8.2) LFT Test 10/13/24 07:40 Alanine Aminotransferase (ALT) 19 U/L (7-40) Alkaline Phosphatase 75 U/L (46-116) Aspartate Amino Transferase (AST) 22 U/L (13-40) Total Bilirubin 1.2 mg/dL (0.2-1.0) H Urinalysis Test 10/12/24 17:52 Urine Color Light-yellow (Yellow) Urine Clarity Clear (Clear) Urine pH 6.0 (5.0-9.0) Urine Specific [place] 1.016 (1.001-1.035) Urine Protein Trace (Negative) H Urine Ketones Negative (Negative) Urine Blood 1+ /uL (Negative) H Urine Nitrite Negative (Negative) Urine Bilirubin Negative (Negative) Urine Urobilinogen Normal mg/dL (Negative) Urine Leukocyte Esterase Negative /uL (Negative) Urine RBC 4 /hpf (0 - 3) Urine Microscopic WBC 1 /HPF (0-3) Urine Squamous Epithelial Cells None seen /hpf (<5) Urine Bacteria None seen /hpf (None Seen) Urine Glucose Normal mg/dL (Normal) Microbiology Microbiology Date/Time Source Procedure Growth Status 10/12/24 18:18 Blood Blood Culture - Preliminary Resulted Assessment/Plan Assessment/Plan # Sepsis - Abx - F/u Cultures # Bacteremia - Vanco IV - Repeat cultures - ECHO to r/o Vegetations # DM2 - SSI Plan discussed with: Patient, Spouse, Daughter My Orders Orders - DUTCH ALBERT MD Procedure Category Date Status Time Chest Without Contrast CT 10/12/24 Resulted 18:15 Blood Culture [facility] 10/13/24 In Process 10:58 Vancomycin Per PHA 10/13/24 Transmitted Pharmacy 13:15 Complete Blood Count LAB 10/14/24 Verified 04:00 Comprehensive LAB 10/14/24 Verified Metabolic Panel 04:00 Blood Culture [facility] 10/14/24 Logged 04:00 Date of Service: October 13, 2024 Billing Provider: DUTCH ALBERT MD Common Visit Codes: [id number] INP/OBS CARE(HIGH) DUTCH ALBERT MD October 13, 2024 13:08
[2024-10-13] MEDS ORDERED: VANCOMYCIN PER PHARMACY 0 MG IV SCH (13:15)
[2024-10-13] MEDS ORDERED: DEXTROSE (50%) 50ML SYRG IV PRN (18:00)
[2024-10-13] MEDS: VANCOMYCIN 1GM/200ML PM 200 ML IV SCH (18:49)
[2024-10-13] MEDS: ALBUTEROL SULF 2.5 MG/0.5ML(0.5%) NEB SOLN NEB SCH (19:25)
[2024-10-13] MEDS: IPRATROPIUM BROM 0.5 MG/2.5ML INH SOL NEB SCH (19:25)
[2024-10-13] MEDS: ACETYLCYSTEINE 10 %(100MG/ML) SOL 4ML ONE (19:25)
[2024-10-13] MEDS: ACETYLCYSTEINE 10 %(100MG/ML) SOL 4ML NEB SCH (19:26)
[2024-10-13] MEDS: InsuLIN REG 1unit/0.01ml Soln (100units/ml) SC SCH (21:52)
[2024-10-13] MEDS: ACCU-CHEK COMFORT CURVE STRIP VI SCH (21:54)
[2024-10-14] VITALS (16 sets, daily range): BP systolic 105–136; BP diastolic 54–81; PULSE 54–71; RESP 15–20; TEMP 97–98.2; O2SAT 3–100
[2024-10-14 07:02] LABS: Basophils # (auto) 0 10 ^3/uL (0-0.2); Basophils % (auto) 0.2 % (0.0-2.0); Eosinophils # (auto) 0 10 ^3/uL (0-0.8); Eosinophils % (auto) 0.3 % (0.0-7.0); Hematocrit 42.8 % (41.0-53.0); Hemoglobin 14.7 g/dL (13.5-17.5); Lymphocytes # (auto) 1.1 10 ^3/uL (0.4-5.4); Lymphocytes % (auto) 12.7 % (10.0-50.0); Mean Corpuscular Hemoglobin 29.6 pg (28.0-32.0); Mean Corpuscular Hgb Conc. 34.3 g/dL (32.0-36.0); Mean Corpuscular Volume 86.2 fL (80.0-100.0); Monocytes % (auto) 12.3 % (0.0-12.0); Neutrophils # (auto) 6.2 10 ^3/uL (1.6-8.6); Neutrophils % (auto) 74.5 % (37.0-80.0); Nucleated Red Blood Cells % 0.1 %; Platelet Count (auto) 115 10^3/uL (140-450); Red Blood Cells 4.96 10^6/uL (4.5-5.90); Red Cell Distribution Width 14.2 % (11.8-14.3); White Blood Cell 8.4 10^3/uL (4.4-10.8)
[2024-10-14 07:26] LABS: Alanine Aminotransferase 33 U/L (7-40); Albumin 3.9 g/dL (3.2-4.8); Alkaline Phosphatase 74 U/L (46-116); Anion Gap 9 (5-15); BUN/Creatinine Ratio 15.8 (10.0-20.0); Blood Urea Nitrogen 16 mg/dL (9-23); Calcium 9.4 mg/dL (8.7-10.4); Carbon Dioxide 21 mmol/L (20-31); Glucose 89 mg/dL (74-106); Sodium 138 mmol/L (136-145); Total Protein 6.3 g/dL (5.7-8.2)
[2024-10-14 07:32] LABS: Aspartate Aminotransferase 42 U/L (13-40); Chloride 108 mmol/L (98-107); Potassium 3.4 mmol/L (3.5-5.1)
[2024-10-14 10:40] LABS: Base Excess -5.8 mmol/L (-2.0-3.0)
[2024-10-14] MEDS: POTASSIUM CHL 10 Meq TABLET PO ONE (12:13)
--- NOTE | 2024-10-14 12:36 | DVHPN2 ---
Subjective Seen and examined at bedside, family at bedside. Patient has 2 bottles that are positive for Gram Positive. Will add Vancomycin. Needs BENOIT Changes from previous H/P or p: No Changes Eyes: No Pain, No Vision change, No Conjunctivae inflammation, No Eyelid inflammation, No Other, No Redness ENT: No Ear pain, No Ear discharge, No Nose pain, No Nose discharge, No Nose congestion, No Mouth pain, No Mouth swelling, No Throat pain, No Throat swelling, No Other Cardiovascular: No Chest Pain, No Palpitations, No Orthopnea, No Paroxysmal Noc. Dyspnea, No Edema, No Lt Headedness, No Other Respiratory: No Cough, No Dry, No Shortness of breath, No SOB with excertion, No Wheezing, No Hemoptysis, No Pleuritic Pain, No Sputum, No Other Gastrointestinal: No Nausea, No Vomiting, No Abdominal Pain, No Diarrhea, No Constipation, No Melena, No Hematochezia, No Other Genitourinary: No Dysuria, No Frequency, No Incontinence, No Hematuria, No Retention, No Other Musculoskeletal: No other, No neck pain, No shoulder pain, No arm pain, No back pain, No hand pain, No leg pain, No foot pain Skin: No Rash, No Lesions, No Jaundice, No Bruising, No Other Objective Vitals Vital Signs Date Time Temp Pulse Resp B/P (MAP) Pulse Ox O2 Delivery O2 Flow Rate FiO2 10/14/24 11:39 56 18 100 10/14/24 11:33 Room Air* 0 21 10/14/24 10:34 121/61 10/14/24 09:00 97.5 97.5 Intake/Output Intake and Output 10/14/24 07:00 Intake Total 1100 ml Balance 1100 ml Intake Oral 1100 ml # Voids 7 General Appearance: Alert, Oriented X3, Cooperative, No acute distress Lungs: Clear to auscultation Cardiovascular: Regular rate, Normal S1, Normal S2 Abdomen: Normal bowel sounds, Soft Psych/Mental Status: Mental status NL Medications Current Medications Medications Dose Ordered Sig/Radhika Route Start Time Stop Time Status Last Admin Dose Admin Ceftriaxone Sodium 50 ml @ 100 mls/hr DAILY@09 IV 10/13/24 09:00 10/14/24 10:22 100 MLS/HR Azithromycin 250 ml @ 125 mls/hr DAILY IV 10/13/24 10:00 10/14/24 11:20 125 MLS/HR Atenolol 50 mg DAILY PO 10/13/24 10:00 10/14/24 10:34 50 MG Hydralazine HCl 10 mg Q6HP PRN IV 10/12/24 21:30 Famotidine 20 mg DAILY IV 10/13/24 10:00 10/14/24 10:22 20 MG Sodium Chloride 10 ml Q8HR IV 10/12/24 22:00 10/14/24 06:06 10 ML Acetaminophen/ Hydrocodone Bitart 1 tab Q4HP PRN PO 10/12/24 21:30 Ondansetron HCl 4 mg Q4HP PRN IV 10/12/24 21:30 Docusate Sodium 100 mg BIDPRN PRN PO 10/12/24 21:30 Acetaminophen 650 mg Q6HP PRN PO 10/12/24 21:30 Nitroglycerin 0.4 mg Q5MINP PRN SL 10/12/24 21:45 Morphine Sulfate 2 mg Q30M PRN IV 10/12/24 21:45 Vancomycin HCl 0 ml @ 0 mls/hr UD IV 10/13/24 13:15 Ipratropium [place] 0.5 mg Q6HR NEB 10/13/24 18:00 10/14/24 11:32 0.5 MG Albuterol 2.5 mg Q6HR NEB 10/13/24 18:00 10/14/24 11:32 2.5 MG Acetylcysteine 100 mg Q6HR NEB 10/13/24 18:00 10/14/24 11:33 100 MG Diagnostic Test (Pha) 1 strip ACHS 10/13/24 22:00 10/14/24 11:30 1 STRIP Insulin Human Regular ACHS SC 10/13/24 22:00 10/14/24 11:32 4 UNITS Dextrose 50 ml UD PRN IV 10/13/24 18:00 Vancomycin HCl 200 ml @ 200 mls/hr Q24H IV 10/13/24 18:00 10/13/24 18:49 200 MLS/HR Laboratory Results Laboratory Tests 10/14/24 06:31 Chemistry Test 10/14/24 06:31 Albumin 3.9 g/dL (3.2-4.8) Calcium Level 9.4 mg/dL (8.7-10.4) Total Protein 6.3 g/dL (5.7-8.2) LFT Test 10/14/24 06:31 Alanine Aminotransferase (ALT) 33 U/L (7-40) Alkaline Phosphatase 74 U/L (46-116) Aspartate Amino Transferase (AST) 42 U/L (13-40) H Total Bilirubin 1.0 mg/dL (0.2-1.0) Urinalysis Test 10/12/24 17:52 Urine Color Light-yellow (Yellow) Urine Clarity Clear (Clear) Urine pH 6.0 (5.0-9.0) Urine Specific [place] 1.016 (1.001-1.035) Urine Protein Trace (Negative) H Urine Ketones Negative (Negative) Urine Blood 1+ /uL (Negative) H Urine Nitrite Negative (Negative) Urine Bilirubin Negative (Negative) Urine Urobilinogen Normal mg/dL (Negative) Urine Leukocyte Esterase Negative /uL (Negative) Urine RBC 4 /hpf (0 - 3) Urine Microscopic WBC 1 /HPF (0-3) Urine Squamous Epithelial Cells None seen /hpf (<5) Urine Bacteria None seen /hpf (None Seen) Urine Glucose Normal mg/dL (Normal) Blood Gas Results Test 10/14/24 10:34 Arterial Blood pH 7.410 (7.350-7.450) FiO2 % 21.0 Microbiology Microbiology Date/Time Source Procedure Growth Status 10/13/24 12:26 Blood Blood Culture - Preliminary NO GROWTH AFTER 24 HOURS OF INCUBATION. Resulted Assessment/Plan Assessment/Plan # Sepsis - Abx - F/u Cultures # Bacteremia- S. aureus - Vanco IV - Repeat cultures - ECHO to r/o Vegetations # DM2 A1c 7.1 - SSI Plan discussed with: Patient, Daughter My Orders Orders - DUTCH ALBERT MD Procedure Category Date Status Time Vancomycin Per PHA 10/13/24 In Process Pharmacy 13:15 Blood Culture [facility] 10/14/24 In Process 04:00 Ipratropium Medneb PHA 10/13/24 In Process (Atrovent Medneb) 18:00 Albuterol Medneb PHA 10/13/24 In Process (Ventolin Medneb) 18:00 Acetylcysteine PHA 10/13/24 In Process Inhalation 10% 18:00 Respiratory Culture [facility] 10/13/24 Logged W/ Gs 17:42 Glucose Blood PHA 10/13/24 In Process (Accu-Chek Comfort 22:00 Insulin R (Human) PHA 10/13/24 In Process (Insulin R) 22:00 Dextrose 50% Syringe PHA 10/13/24 In Process 18:00 Vancomycin 1gm/200ml PHA 10/13/24 In Process Pm 18:00 Vancomycin,Trough LAB 10/15/24 Verified 17:00 Vancomycin Per [facility] 10/15/24 In Process Pharmacy Protoc 17:00 Respiratory Culture [facility] 10/13/24 Uncollected W/ Gs 23:00 Echo 2d Mode Cardiac US 10/14/24 Logged DOP 17:42 Incentive Spirometry ORDERS 10/14/24 Transmitted Q 1hr 10:04 Abg W/ Co-Ox RT 10/14/24 Logged 10:04 * Cardiology Consult CONS 10/14/24 Transmitted 11:41 Date of Service: October 14, 2024 Billing Provider: DUTCH ALBERT MD Common Visit Codes: [id number] INP/OBS CARE(HIGH) DUTCH ALBERT MD October 14, 2024 12:36
--- NOTE | 2024-10-14 13:33 | DVHINCON2 ---
Date Seen: October 14, 2024 Referring Physician MD Ruby Reason for Consultation Possible BENOIT History of Present Illness This is an 79-year-old male patient who presents to the emergency room with chief complaint of chills, fever, nausea, and vomiting. The patient's daughter reports that the patient's symptoms all began on the day of emergency room arrival. Upon emergency room arrival, the patient was noted to have a temperature reaching as high as 102.6F. Cardiology has been consulted at this time for evaluation for possible transesophageal echocardiogram. Initial twelve lead electrocardiogram reveals atrial fibrillation. 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 The patient reports that his primary reservations clerk is , but has not seen him since his aortic valve replacement which was done in October of 2023. He denies any recent medical procedures. Past Medical History Past medical history reviewed. No other significant than mentioned above. Past Surgical History TAVR in October 2023 at [facility] Bilateral hip replacement Spinal surgery Family History: Arthritis G8 MOTHER FHx: heart disease G8 FATHER Family History Family history reviewed. Social History Denies the use of tobacco, alcohol or illicit drugs. Allergies: Coded Allergies: NO KNOWN ALLERGIES (Unverified , 02/21/10) Home Meds Active Scripts Cephalexin Monohydrate (Cephalexin) 500 Mg Cap, 500 MG PO QID for 7 Days, #28 CAP Prov:MAGGIE GERMAIN 08/30/21 Reported Medications [Klor-Con] No Conflict Check, 8 MG PO DAILY 09/02/12 Omeprazole (Prilosec Susp (For Gt)) 20 Mg Ss 02/21/10 [Phenergan] No Conflict Check 02/21/10 Hydrochlorothiazide W/Triamter (Hctz/Triamterene) 1 Cap Cap, 25 MG PO DAILY 02/21/10 Atenolol (Atenolol) 50 Mg Tab, 50 MG PO DAILY 02/21/10 Home Meds Home medications reviewed. Current Medications Current Medications Medications (Trade) Dose Ordered Sig/Radhika Route PRN Reason Start Time Stop Time Status Last Admin Ipratropium [place] (Atrovent Medneb) 0.5 mg Q6HR NEB 10/13/24 18:00 10/14/24 11:32 Albuterol (Ventolin Medneb) 2.5 mg Q6HR NEB 10/13/24 18:00 10/14/24 11:32 Acetylcysteine (Mucomyst Inahalation 10%) 100 mg Q6HR NEB 10/13/24 18:00 10/14/24 11:33 Diagnostic Test (Pha) (Accu-Chek Comfort Curve T) 1 strip ACHS 10/13/24 22:00 10/14/24 11:30 Insulin Human Regular (InsuLIN R) ACHS SC 10/13/24 22:00 10/14/24 11:32 Dextrose 50 ml UD PRN IV Blood Sugar LESS THAN 60 10/13/24 18:00 Vancomycin HCl 200 ml @ 200 mls/hr Q24H IV 10/13/24 18:00 10/13/24 18:49 Review of Systems Constitutional: Generalized weakness, chills Ears, Nose, & Throat: No symptom reported Eyes: No symptom reported Neurological: No symptoms reported Pulmonary/Respiratory: No symptoms reported Cardiovascular: No symptom reported Gastrointestinal: Nausea and vomiting Genitourinary: No symptom reported Musculoskeletal: No symptom reported Skin: No symptom reported Psychiatric: No symptom reported Endocrine: No symptom reported Hematologic/Lymphatic: No symptom reported Vital Signs Vital Signs Date Time Temp Pulse Resp B/P (MAP) Pulse Ox O2 Delivery O2 Flow Rate FiO2 10/14/24 12:43 97.0 60 18 105/54 (71) 94 97.0 10/14/24 11:33 Room Air* 0 21 Physical Exam General Appearance: Cooperative. Well-developed. Well-nourished. No acute distress. Pulmonary/Respiratory: Clear, bilateral breaths sounds. Cardiovascular/Chest: Irregular rate and rhythm. Peripheral Pulses: 2+ Radial (R). 2+ Radial (L). 1+ Pedal (R). 1+ Pedal (L) Abdominal Exam: Normal bowel sounds. Ankle Exam: Negative ankle edema Lower extremities: Negative lower extremity edema Neuro/Mental Status: A/OX4, coherent. Thoughts/Psych: Normal thought pattern. Appropriate mood and affect. Good judgment and insight. Appearance: No acute distress. Skin Exam: Discoloration to bilateral lower extremities. Skin warm to touch, purple discoloration to all toes. Capillary refill less than 3 seconds Labs/Diagnostic Data Labs Test 10/14/24 11:22 10/14/24 10:34 10/14/24 06:31 10/13/24 07:40 Range/Units POC Glucose 216 H 70-106 mg/dl Blood Gas Specimen Type Arterial Blood Gas Sample Site Right radial Blood Gas Patient Temperature 37.0 Arterial Blood Date Drawn [id number] Arterial Blood pH 7.410 7.350-7.450 Arterial Blood Partial Pressure CO2 27.5 L 35.0-48.0 mmHg Arterial Blood Partial Pressure O2 64.1 L 83.0-108.0 mmHg Arterial Blood HCO3 17.0 L 21.0-28.0 mmol/L Arterial Blood Oxygen Saturation 92.4 L 94.0-98.0 % Arterial Blood Base Excess -5.8 L -2.0-3.0 mmol/L Arterial Blood Oxyhemoglobin 90.9 L 94.0-98.0 % Arterial Blood Carboxyhemoglobin 1.4 0.5-1.5 % Arterial Blood Methemoglobin 0.2 0.0-1.5 % Eric Test Yes Blood Gas Total Hemoglobin 15.90 13.5-17.5 g/dL Blood Gas Modality Room air FiO2 % 21.0 White Blood Count 8.4 # 4.4-10.8 10^3/uL Red Blood Count 4.96 4.5-5.90 10^6/uL Hemoglobin 14.7 13.5-17.5 g/dL Hematocrit 42.8 41.0-53.0 % Mean Corpuscular Volume 86.2 80.0-100.0 fL Mean Corpuscular Hemoglobin 29.6 28.0-32.0 pg Mean Corpuscular Hemoglobin Concent 34.3 32.0-36.0 g/dL Red Cell Distribution Width 14.2 11.8-14.3 % Platelet Count 115 L 140-450 10^3/uL Mean Platelet Volume 9.4 6.9-10.8 fL Neutrophils (%) (Auto) 74.5 37.0-80.0 % Lymphocytes (%) (Auto) 12.7 10.0-50.0 % Monocytes (%) (Auto) 12.3 H 0.0-12.0 % Eosinophils (%) (Auto) 0.3 0.0-7.0 % Basophils (%) (Auto) 0.2 0.0-2.0 % Neutrophils # (Auto) 6.2 1.6-8.6 10 ^3/uL Lymphocytes # (Auto) 1.1 0.4-5.4 10 ^3/uL Monocytes # (Auto) 1.0 0-1.3 10 ^3/uL Eosinophils # (Auto) 0 0-0.8 10 ^3/uL Basophils # (Auto) 0 0-0.2 10 ^3/uL Nucleated Red Blood Cells 0.1 % Sodium Level 138 136-145 mmol/L Potassium Level 3.4 L 3.5-5.1 mmol/L Chloride Level 108 H 98-107 mmol/L Carbon Dioxide Level 21 20-31 mmol/L Anion Gap 9 5-15 Blood Urea Nitrogen 16 9-23 mg/dL Creatinine 1.01 0.700-1.30 mg/dL Glomerular Filtration Rate Calc 75 >90 mL/min BUN/Creatinine Ratio 15.8 10.0-20.0 Serum Glucose 89 74-106 mg/dL Calcium Level 9.4 8.7-10.4 mg/dL Total Bilirubin 1.0 0.2-1.0 mg/dL Aspartate Amino Transferase (AST) 42 H 13-40 U/L Alanine Aminotransferase (ALT) 33 7-40 U/L Alkaline Phosphatase 74 46-116 U/L Total Protein 6.3 5.7-8.2 g/dL Albumin 3.9 3.2-4.8 g/dL Hemoglobin A1c 7.0 H <5.7 % A1C Test 10/12/24 21:49 10/12/24 21:13 10/12/24 18:42 10/12/24 18:18 Range/Units Influenza Type A Antigen Negative Negative Influenza Type B Antigen Negative Negative Troponin I High Sensitivity 12 </=54 ng/L SARS-CoV-2 Antigen (Rapid) Negative NEGATIVE Differential Total Cells Counted 100.0 100 Neutrophils % (Manual) 83 H 37.0-80.0 Band Neutrophils % (Manual) 3 Lymphocytes % (Manual) 5 L 10.0-50.0 Monocytes % (Manual) 9 0-12 Eosinophils % (Manual) 0 0-7 Basophils % (Manual) 0 0.0-2.0 Metamyelocytes % (manual) 0 Myelocytes % (Manual) 0 Promyelocytes % (Manual) 0 Blast Cells % (Manual) 0 Reactive Lymphocytes 0 Platelet Estimate Adequate Anisocytosis (manual) Slight Lactic Acid Level 2.0 0.4-2.0 mmol/L Test 10/12/24 17:52 Range/Units Urine Color Light-yellow Yellow Urine Clarity Clear Clear Urine pH 6.0 5.0-9.0 Urine Specific [place] 1.016 1.001-1.035 Urine Protein Trace H Negative Urine Ketones Negative Negative Urine Blood 1+ H Negative /uL Urine Nitrite Negative Negative Urine Bilirubin Negative Negative Urine Urobilinogen Normal Negative mg/dL Urine Leukocyte Esterase Negative Negative /uL Urine RBC 4 0 - 3 /hpf Urine Microscopic WBC 1 0-3 /HPF Urine Squamous Epithelial Cells None seen <5 /hpf Urine Bacteria None seen None Seen /hpf Urine Glucose Normal Normal mg/dL Microbiology Date/Time Source Procedure Growth Status 10/13/24 12:26 Blood Blood Culture - Preliminary NO GROWTH AFTER 24 HOURS OF INCUBATION. Resulted Assessment Bacteremia, rule out infective endocarditis Severe aortic valve stenosis status post bovine TAVR in 2023 Atrial fibrillation, unspecified stage (on Eliquis) Hypertension Dyslipidemia Type 2 diabetes mellitus Arthritis Obesity Plan/Recommendation We will continue with the following plan/recommendations (Dr. Angulo): Case discussed with . We will proceed with obtaining a transthoracic echocardiogram to evaluate cardiac function as well as valvular function. Faust criteria for infective endocarditis: Possible. Given patient's clinical presentation, history of TAVR, and suspicious Faust criteria, the patient was offered a transesophageal echocardiogram to rule out infective endocarditis. Plan discussed with the patient and his daughter who was at bedside. The patient is agreeable to undergo transesophageal echocardiogram. We will schedule the patient on 10/16/2024 with . [id number] VASc score: 4 points, HAS-BLED: 1 point. Initiate home dose (low-dose) Eliquis therapy. Beta- whit for rate control. Continue with close telemetry monitoring. Thank you for allowing us to care for this patient. Please call with any questions or concerns. Critical care time spent: 44 minutes This medical document was created using an electronic medical record system with voice recognition software and computerized dictation system. Although this document has been carefully reviewed, there might still be some phonetic and typographical errors. Occasional wrong-word or ``sound-alike substitutions may have occurred due to the inherent limitations of voice recognition software. These areas are purely typographical due to imperfections of the software programs and do not reflect any compromise in the patient's medical care. Please read the chart carefully and recognize, using context, where these substitutions have occurred. Plan discussed with: Patient, Daughter NYHA Physical activity limitations: NA Date of Service: October 14, 2024 Billing Provider: CRISTO HO Cardiology Common Codes: 13857-[id number] INP/OBS CARE (High) Cardiology Consultation Codes: [id number] CONSULT <45MIN CRISTO HO October 14, 2024 13:33
[2024-10-14] MEDS: APIXABAN 2.5 MG TAB PO SCH (21:32)
[2024-10-15] VITALS (14 sets, daily range): BP systolic 94–139; BP diastolic 57–81; PULSE 50–69; RESP 16–20; TEMP 97.5–98.7; O2SAT 92–100
[2024-10-15 07:22] LABS: Basophils # (auto) 0 10 ^3/uL (0-0.2); Basophils % (auto) 0.1 % (0.0-2.0); Eosinophils # (auto) 0.1 10 ^3/uL (0-0.8); Eosinophils % (auto) 0.7 % (0.0-7.0); Hemoglobin 15.3 g/dL (13.5-17.5); Lymphocytes # (auto) 1.5 10 ^3/uL (0.4-5.4); Lymphocytes % (auto) 15.6 % (10.0-50.0); Mean Corpuscular Hemoglobin 30.1 pg (28.0-32.0); Mean Corpuscular Hgb Conc. 34.7 g/dL (32.0-36.0); Mean Corpuscular Volume 86.7 fL (80.0-100.0); Monocytes # (auto) 1.1 10 ^3/uL (0-1.3); Monocytes % (auto) 11.2 % (0.0-12.0); Neutrophils # (auto) 7.1 10 ^3/uL (1.6-8.6); Neutrophils % (auto) 72.4 % (37.0-80.0); Nucleated Red Blood Cells % 0.1 %; Platelet Count (auto) 126 10^3/uL (140-450); Red Blood Cells 5.08 10^6/uL (4.5-5.90); Red Cell Distribution Width 14.4 % (11.8-14.3); White Blood Cell 9.8 10^3/uL (4.4-10.8)
--- NOTE | 2024-10-15 10:21 | DVHPN2 ---
Progress Note Date Seen: Oct 15, 2024 Medical Necessity Reason Pt with a Central, PICC or Fol: No Subjective Patient reports: Feels better Objective vital signs Vital Sign Date Time Temp Pulse Resp B/P (MAP) Pulse Ox O2 Delivery O2 Flow Rate FiO2 10/15/24 09:24 62 112/63 10/15/24 08:56 98.3 18 92 98.3 10/15/24 08:00 Nasal Cannula* 3 32 Total Intake and Output 10/14/24 10/14/24 10/15/24 15:00 23:00 07:00 Intake Total 940 ml 400 ml Balance 940 ml 400 ml medications Current Medications Medications Dose Ordered Sig/Radhika Route Start Time Stop Time Status Last Admin Dose Admin Ceftriaxone Sodium 50 ml @ 100 mls/hr DAILY@09 IV 10/13/24 09:00 10/15/24 09:25 100 MLS/HR Azithromycin 250 ml @ 125 mls/hr DAILY IV 10/13/24 10:00 10/14/24 11:20 125 MLS/HR Atenolol 50 mg DAILY PO 10/13/24 10:00 10/15/24 09:24 50 MG Hydralazine HCl 10 mg Q6HP PRN IV 10/12/24 21:30 Famotidine 20 mg DAILY IV 10/13/24 10:00 10/15/24 09:22 20 MG Sodium Chloride 10 ml Q8HR IV 10/12/24 22:00 10/15/24 06:15 10 ML Acetaminophen/ Hydrocodone Bitart 1 tab Q4HP PRN PO 10/12/24 21:30 Ondansetron HCl 4 mg Q4HP PRN IV 10/12/24 21:30 Docusate Sodium 100 mg BIDPRN PRN PO 10/12/24 21:30 Acetaminophen 650 mg Q6HP PRN PO 10/12/24 21:30 Nitroglycerin 0.4 mg Q5MINP PRN SL 10/12/24 21:45 Morphine Sulfate 2 mg Q30M PRN IV 10/12/24 21:45 Vancomycin HCl 0 ml @ 0 mls/hr UD IV 10/13/24 13:15 Ipratropium [place] 0.5 mg Q6HR NEB 10/13/24 18:00 10/15/24 06:13 0.5 MG Albuterol 2.5 mg Q6HR NEB 10/13/24 18:00 10/15/24 06:13 2.5 MG Acetylcysteine 100 mg Q6HR NEB 10/13/24 18:00 10/15/24 06:13 100 MG Diagnostic Test (Pha) 1 strip ACHS 10/13/24 22:00 10/15/24 06:15 1 STRIP Insulin Human Regular ACHS SC 10/13/24 22:00 10/15/24 06:14 2 UNITS Dextrose 50 ml UD PRN IV 10/13/24 18:00 Vancomycin HCl 200 ml @ 200 mls/hr Q24H IV 10/13/24 18:00 10/14/24 18:00 200 MLS/HR Apixaban 2.5 mg BID PO 10/14/24 22:00 10/15/24 09:25 2.5 MG Examination: GENERAL:Abnormal, HEENT:Abnormal, LUNGS:Abnormal, CVS:Abnormal, ABDOMEN:Abnormal laboratory and microbiology Laboratory Tests 10/15/24 07:05 10/14/24 06:31 Test 10/14/24 06:31 Range/Units Serum Glucose 89 74-106 mg/dL Microbiology Date/Time Source Procedure Growth Status 10/14/24 06:31 Blood Blood Culture - Preliminary NO GROWTH AFTER 24 HOURS OF INCUBATION. Resulted Problem List/Assessment/Plan Problem List/Assessment/Plan s/p tavr bacteremia htn HL regino tomorrow pt agrees to plan fu echo Plan discussed with: Patient Date of Service: Oct 15, 2024 Billing Provider: SILVIO BRAMBILA MD Common Visit Codes: NOT BILLABLE SILVIO BRAMBILA MD Oct 15, 2024 10:21
--- NOTE | 2024-10-15 10:43 | DVHSR ---
APPROVED REPORT EXAM: LIMITED Two-dimensional and M-mode echocardiogram with Doppler and color Doppler. Blood Pressure: 124/60 mmHg INDICATION Vegetations RISK FACTORS Obesity: Height: 5', Weight: 191 DIMENSIONS LVDd5.2 (3.8-5.7cm)LA (2D)4.3 (1.9-4.0cm)Aortic Root2.9 (2.0-3.7cm) LVDs3.6 (2.5-4.0cm)LA (MM) (1.9-4.0cm)Aortic Cusp Exc1.3 (1.5-2.0cm) EF (%) 58.0 (55-70%)Rt. Atrium4.0 (1.9-4.0cm)Asc. Aorta3.5 cm IVSd1.1 (0.7-1.1cm)RV (D) (1.8-2.4cm) PWd0.9 (0.7-1.1cm) Mitral Valve MitralMitral Stenosis E wave1.40m/sMV Mean GR.mmHg A wave0.80m/sMV Peak GR.mmHg E/A ratio1.82D MVAcm2 Aortic Valve Aortic ValveAortic Stenosis V10.80m/Erin Mean GR.11mmHg V22.20m/Erin Peak GR.21mmHg LVOT Diameter2.0 (1.8-2.4cm)Doppler AVA1.14cm2 Pulmonic Valve V20.70m/s Tricuspid Valve TR Velocity3.10m/s [id number] Other Information Quality : Technically LimitedRhythm : Technically limited study due to body habitus and patient position. Conclusion lvef 55% borderline lvh s/p TAVR, well seated, no regurg , normal appearing valve no vegetation noted
--- NOTE | 2024-10-15 11:13 | DVHPN2 ---
Subjective Seen and examined at bedside, family at bedside. Cont Vanco. BENOIT tomorrow Changes from previous H/P or p: No Changes Eyes: No Pain, No Vision change, No Conjunctivae inflammation, No Eyelid inflammation, No Other, No Redness ENT: No Ear pain, No Ear discharge, No Nose pain, No Nose discharge, No Nose congestion, No Mouth pain, No Mouth swelling, No Throat pain, No Throat swelling, No Other Cardiovascular: No Chest Pain, No Palpitations, No Orthopnea, No Paroxysmal Noc. Dyspnea, No Edema, No Lt Headedness, No Other Respiratory: No Cough, No Dry, No Shortness of breath, No SOB with excertion, No Wheezing, No Hemoptysis, No Pleuritic Pain, No Sputum, No Other Gastrointestinal: No Nausea, No Vomiting, No Abdominal Pain, No Diarrhea, No Constipation, No Melena, No Hematochezia, No Other Genitourinary: No Dysuria, No Frequency, No Incontinence, No Hematuria, No Retention, No Other Musculoskeletal: No other, No neck pain, No shoulder pain, No arm pain, No back pain, No hand pain, No leg pain, No foot pain Skin: No Rash, No Lesions, No Jaundice, No Bruising, No Other Objective Vitals Vital Signs Date Time Temp Pulse Resp B/P (MAP) Pulse Ox O2 Delivery O2 Flow Rate FiO2 10/15/24 09:24 62 112/63 10/15/24 08:56 98.3 18 92 98.3 10/15/24 08:00 Nasal Cannula* 3 32 Intake/Output Intake and Output 10/15/24 07:00 Intake Total 1340 ml Balance 1340 ml Intake Oral 1340 ml # Voids 10 # Bowel Movements 2 General Appearance: Alert, Oriented X3, Cooperative, No acute distress Lungs: Clear to auscultation Cardiovascular: Regular rate, Normal S1, Normal S2 Abdomen: Normal bowel sounds, Soft Psych/Mental Status: Mental status NL Medications Current Medications Medications Dose Ordered Sig/Radhika Route Start Time Stop Time Status Last Admin Dose Admin Ceftriaxone Sodium 50 ml @ 100 mls/hr DAILY@09 IV 10/13/24 09:00 10/15/24 09:25 100 MLS/HR Azithromycin 250 ml @ 125 mls/hr DAILY IV 10/13/24 10:00 10/14/24 11:20 125 MLS/HR Atenolol 50 mg DAILY PO 10/13/24 10:00 10/15/24 09:24 50 MG Hydralazine HCl 10 mg Q6HP PRN IV 10/12/24 21:30 Famotidine 20 mg DAILY IV 10/13/24 10:00 10/15/24 09:22 20 MG Sodium Chloride 10 ml Q8HR IV 10/12/24 22:00 10/15/24 06:15 10 ML Acetaminophen/ Hydrocodone Bitart 1 tab Q4HP PRN PO 10/12/24 21:30 Ondansetron HCl 4 mg Q4HP PRN IV 10/12/24 21:30 Docusate Sodium 100 mg BIDPRN PRN PO 10/12/24 21:30 Acetaminophen 650 mg Q6HP PRN PO 10/12/24 21:30 Nitroglycerin 0.4 mg Q5MINP PRN SL 10/12/24 21:45 Morphine Sulfate 2 mg Q30M PRN IV 10/12/24 21:45 Vancomycin HCl 0 ml @ 0 mls/hr UD IV 10/13/24 13:15 Ipratropium [place] 0.5 mg Q6HR NEB 10/13/24 18:00 10/15/24 06:13 0.5 MG Albuterol 2.5 mg Q6HR NEB 10/13/24 18:00 10/15/24 06:13 2.5 MG Acetylcysteine 100 mg Q6HR NEB 10/13/24 18:00 10/15/24 06:13 100 MG Diagnostic Test (Pha) 1 strip ACHS 10/13/24 22:00 10/15/24 06:15 1 STRIP Insulin Human Regular ACHS SC 10/13/24 22:00 10/15/24 06:14 2 UNITS Dextrose 50 ml UD PRN IV 10/13/24 18:00 Vancomycin HCl 200 ml @ 200 mls/hr Q24H IV 10/13/24 18:00 10/14/24 18:00 200 MLS/HR Apixaban 2.5 mg BID PO 10/14/24 22:00 10/15/24 09:25 2.5 MG Laboratory Results Laboratory Tests 10/14/24 06:31 10/15/24 07:05 Urinalysis Test 10/12/24 17:52 Urine Color Light-yellow (Yellow) Urine Clarity Clear (Clear) Urine pH 6.0 (5.0-9.0) Urine Specific [place] 1.016 (1.001-1.035) Urine Protein Trace (Negative) H Urine Ketones Negative (Negative) Urine Blood 1+ /uL (Negative) H Urine Nitrite Negative (Negative) Urine Bilirubin Negative (Negative) Urine Urobilinogen Normal mg/dL (Negative) Urine Leukocyte Esterase Negative /uL (Negative) Urine RBC 4 /hpf (0 - 3) Urine Microscopic WBC 1 /HPF (0-3) Urine Squamous Epithelial Cells None seen /hpf (<5) Urine Bacteria None seen /hpf (None Seen) Urine Glucose Normal mg/dL (Normal) Microbiology Microbiology Date/Time Source Procedure Growth Status 10/14/24 06:31 Blood Blood Culture - Preliminary NO GROWTH AFTER 24 HOURS OF INCUBATION. Resulted Assessment/Plan Assessment/Plan # Sepsis - Abx - F/u Cultures # Bacteremia- S. aureus - Vanco IV - Repeat cultures - ECHO to r/o Vegetations # s/p TAVR # DM2 A1c 7.1 - SSI Plan discussed with: Daughter My Orders Orders - DUTCH ALBERT MD Procedure Category Date Status Time * Cardiology Consult CONS 10/14/24 Transmitted 11:41 Date of Service: Oct 15, 2024 Billing Provider: DUTCH ALBERT MD Common Visit Codes: [id number] INP/OBS CARE(HIGH) DUTCH ALBERT MD Oct 15, 2024 11:13
[2024-10-16] VITALS (20 sets, daily range): BP systolic 112–157; BP diastolic 64–84; PULSE 50–70; RESP 14–28; TEMP 96.9–97.8; O2SAT 92–100
[2024-10-16 06:49] LABS: Basophils # (auto) 0 10 ^3/uL (0-0.2); Basophils % (auto) 0.1 % (0.0-2.0); Eosinophils # (auto) 0.1 10 ^3/uL (0-0.8); Hemoglobin 15.6 g/dL (13.5-17.5); Lymphocytes # (auto) 1.6 10 ^3/uL (0.4-5.4); Lymphocytes % (auto) 21.1 % (10.0-50.0); Mean Corpuscular Hemoglobin 29.9 pg (28.0-32.0); Mean Corpuscular Hgb Conc. 34.6 g/dL (32.0-36.0); Mean Corpuscular Volume 86.3 fL (80.0-100.0); Monocytes # (auto) 0.7 10 ^3/uL (0-1.3); Monocytes % (auto) 9.8 % (0.0-12.0); Neutrophils # (auto) 4.9 10 ^3/uL (1.6-8.6); Platelet Count (auto) 156 10^3/uL (140-450); Red Blood Cells 5.21 10^6/uL (4.5-5.90); Red Cell Distribution Width 14.3 % (11.8-14.3); White Blood Cell 7.4 10^3/uL (4.4-10.8)
[2024-10-16] MEDS: LIDOCAINE VISCOUS 2% 15ML UD PO ONE (11:45)
[2024-10-16] MEDS: MIDAZOLAM HCL 2MG/2ML 2ml VIAL (1mg/ml) IV ONE (11:48)
[2024-10-16] MEDS: fentaNYL CITRATE 100 MCG/2 ML VL IV ONE (11:51)
--- NOTE | 2024-10-16 11:56 | DVHPN2 ---
Progress Note Date Seen: Oct 16, 2024 Medical Necessity Reason Pt with a Central, PICC or Fol: No Subjective Patient reports: Feels better Objective vital signs Vital Sign Date Time Temp Pulse Resp B/P (MAP) Pulse Ox O2 Delivery O2 Flow Rate FiO2 10/16/24 08:35 97.1 68 18 153/84 (107) 94 97.1 10/16/24 08:00 Room Air* 0 21 Total Intake and Output 10/15/24 10/15/24 10/16/24 15:00 23:00 07:00 Intake Total 980 ml 600 ml Balance 980 ml 600 ml medications Current Medications Medications Dose Ordered Sig/Radhika Route Start Time Stop Time Status Last Admin Dose Admin Ceftriaxone Sodium 50 ml @ 100 mls/hr DAILY@09 IV 10/13/24 09:00 10/16/24 09:06 100 MLS/HR Azithromycin 250 ml @ 125 mls/hr DAILY IV 10/13/24 10:00 10/14/24 11:20 125 MLS/HR Atenolol 50 mg DAILY PO 10/13/24 10:00 10/15/24 09:24 50 MG Hydralazine HCl 10 mg Q6HP PRN IV 10/12/24 21:30 Famotidine 20 mg DAILY IV 10/13/24 10:00 10/15/24 09:22 20 MG Sodium Chloride 10 ml Q8HR IV 10/12/24 22:00 10/16/24 06:00 10 ML Acetaminophen/ Hydrocodone Bitart 1 tab Q4HP PRN PO 10/12/24 21:30 Ondansetron HCl 4 mg Q4HP PRN IV 10/12/24 21:30 Docusate Sodium 100 mg BIDPRN PRN PO 10/12/24 21:30 Acetaminophen 650 mg Q6HP PRN PO 10/12/24 21:30 Nitroglycerin 0.4 mg Q5MINP PRN SL 10/12/24 21:45 Morphine Sulfate 2 mg Q30M PRN IV 10/12/24 21:45 Vancomycin HCl 0 ml @ 0 mls/hr UD IV 10/13/24 13:15 Ipratropium [place] 0.5 mg Q6HR NEB 10/13/24 18:00 10/16/24 06:28 0.5 MG Albuterol 2.5 mg Q6HR NEB 10/13/24 18:00 10/16/24 06:28 2.5 MG Acetylcysteine 100 mg Q6HR NEB 10/13/24 18:00 10/16/24 06:29 100 MG Diagnostic Test (Pha) 1 strip ACHS 10/13/24 22:00 10/16/24 06:52 1 STRIP Insulin Human Regular ACHS SC 10/13/24 22:00 10/15/24 21:44 4 UNITS Dextrose 50 ml UD PRN IV 10/13/24 18:00 Apixaban 2.5 mg BID PO 10/14/24 22:00 10/15/24 21:34 2.5 MG Vancomycin HCl 200 ml @ 160 mls/hr Q18H IV 10/16/24 12:00 Examination: GENERAL:Abnormal, HEENT:Abnormal, LUNGS:Abnormal, CVS:Abnormal, ABDOMEN:Abnormal laboratory and microbiology Laboratory Tests 10/16/24 06:07 10/14/24 06:31 Test 10/14/24 06:31 Range/Units Serum Glucose 89 74-106 mg/dL Microbiology Date/Time Source Procedure Growth Status 10/14/24 06:31 Blood Blood Culture - Preliminary NO GROWTH AFTER 48 HOURS OF INCUBATION. Resulted Problem List/Assessment/Plan Problem List/Assessment/Plan s/p tavr bacteremia htn HL regino shows no vegetation cont current meds fu echo if indicated within 2 weeks if persistent symptoms/infection Plan discussed with: Patient Date of Service: Oct 16, 2024 Billing Provider: SILVIO BRAMBILA MD Common Visit Codes: NOT BILLABLE SILVIO BRAMBILA MD Oct 16, 2024 11:56
--- NOTE | 2024-10-16 11:59 | DVHOP2 ---
Operative Report PROCEDURES PERFORMED: trans esophageal echocardiogram, conscious sedation <15 mins, doppler assesment complete BENOIT, DC PREOPERATIVE DIAGNOSES: A bacteremia POSTOP DIAGNOSIS: s/p TAVR DESCRIPTION OF PROCEDURE: The patient or appropriate family signed informed consent understanding the risks, benefits and alternatives of the procedure, they wished to proceed. The patient was brought to the cardiac cathead operator in n.p.o. state. the patient was given 15 ml of oral viscous lidocaine. the patient was placed in a left lateral decubitus position with bite block in mouth. NExt conscious sedation was administered per cathead operator protocol with __1 mg of versed and __25 _ mcg of fentanyl. Next a BENOIT probe was advanced to the mid esophagus with ease and multiple planar images obtained. At the completion of the procedure , probe was removed and there were no immediate complications. FINDINGS: Left Ventricle: Normal LV size and function, LVEF estimated at 55 % mild LVH Right Ventricle: NOrmal RVunction Left atrium: enlarged, smoke in LA Right atrium: mild enlarged Left atrial appendage: no thrombus noted, Aortic valve: sp TAVR, widely patent, no vegetation noted, no significant AI or noted Mitral Valve: structurally normal, mild mitral regurg, no MS, no vegetation noted Tricuspid Valve: mild to moderate tricuspid regurgitaiton, no TS, no obvious vegetation noted Pulmonic Valve: not well seen, no vegetation noted however Interatrial septum: negative color flow for R to L shunt Ascending aorta: no severe plaquing SILVIO BRAMBILA MD Oct 16, 2024 11:59
--- NOTE | 2024-10-16 12:51 | ECG ---
[facility] Test Date: 2024-10-12 Test Time: 17:48:12 Pat Name: AZ GARGALLANES Department: ER Room: 0283T A Gender: M Presentation Specialist: ER : [id number] Requested By: ANDREA ESTRADA Order Number: [id number] Reading MD: Gautam Wright Measurements Intervals [place] Rate: 83 P: 0 [place]: 0 QRS: 17 QRSD: 93 T: 168 QT: 321 QTc: 378 Interpretive Statements Atrial fibrillation Repol abnrm suggests ischemia, anterolateral Electronically Signed On 10-18-2024 14:42:21 PDT by Gautam Wright Please click the below link to view image of tracing.
--- NOTE | 2024-10-16 14:49 | DVHPN2 ---
Subjective Seen and examined at bedside, Gisselle Rincon. BENOIT negative. DC in AM Changes from previous H/P or p: No Changes Eyes: No Pain, No Vision change, No Conjunctivae inflammation, No Eyelid inflammation, No Other, No Redness ENT: No Ear pain, No Ear discharge, No Nose pain, No Nose discharge, No Nose congestion, No Mouth pain, No Mouth swelling, No Throat pain, No Throat swelling, No Other Cardiovascular: No Chest Pain, No Palpitations, No Orthopnea, No Paroxysmal Noc. Dyspnea, No Edema, No Lt Headedness, No Other Respiratory: No Cough, No Dry, No Shortness of breath, No SOB with excertion, No Wheezing, No Hemoptysis, No Pleuritic Pain, No Sputum, No Other Gastrointestinal: No Nausea, No Vomiting, No Abdominal Pain, No Diarrhea, No Constipation, No Melena, No Hematochezia, No Other Genitourinary: No Dysuria, No Frequency, No Incontinence, No Hematuria, No Retention, No Other Musculoskeletal: No other, No neck pain, No shoulder pain, No arm pain, No back pain, No hand pain, No leg pain, No foot pain Skin: No Rash, No Lesions, No Jaundice, No Bruising, No Other Objective Vitals Vital Signs Date Time Temp Pulse Resp B/P (MAP) Pulse Ox O2 Delivery O2 Flow Rate FiO2 10/16/24 13:51 68 136/78 10/16/24 13:10 21 94 10/16/24 11:55 Nasal Cannula 2.0 10/16/24 11:55 28 10/16/24 08:35 97.1 97.1 Intake/Output Intake and Output 10/16/24 07:00 Intake Total 1580 ml Balance 1580 ml Intake Oral 1580 ml # Voids 9 # Bowel Movements 2 General Appearance: Alert, Oriented X3, Cooperative, No acute distress Lungs: Clear to auscultation Cardiovascular: Regular rate, Normal S1, Normal S2 Abdomen: Normal bowel sounds, Soft Psych/Mental Status: Mental status NL Medications Current Medications Medications Dose Ordered Sig/Radhika Route Start Time Stop Time Status Last Admin Dose Admin Ceftriaxone Sodium 50 ml @ 100 mls/hr DAILY@09 IV 10/13/24 09:00 10/16/24 09:06 100 MLS/HR Azithromycin 250 ml @ 125 mls/hr DAILY IV 10/13/24 10:00 10/16/24 13:50 125 MLS/HR Atenolol 50 mg DAILY PO 10/13/24 10:00 10/16/24 13:51 50 MG Hydralazine HCl 10 mg Q6HP PRN IV 10/12/24 21:30 Famotidine 20 mg DAILY IV 10/13/24 10:00 10/15/24 09:22 20 MG Sodium Chloride 10 ml Q8HR IV 10/12/24 22:00 10/16/24 06:00 10 ML Acetaminophen/ Hydrocodone Bitart 1 tab Q4HP PRN PO 10/12/24 21:30 Ondansetron HCl 4 mg Q4HP PRN IV 10/12/24 21:30 Docusate Sodium 100 mg BIDPRN PRN PO 10/12/24 21:30 Acetaminophen 650 mg Q6HP PRN PO 10/12/24 21:30 Nitroglycerin 0.4 mg Q5MINP PRN SL 10/12/24 21:45 Morphine Sulfate 2 mg Q30M PRN IV 10/12/24 21:45 Vancomycin HCl 0 ml @ 0 mls/hr UD IV 10/13/24 13:15 Ipratropium [place] 0.5 mg Q6HR NEB 10/13/24 18:00 10/16/24 11:55 0.5 MG Albuterol 2.5 mg Q6HR NEB 10/13/24 18:00 10/16/24 11:55 2.5 MG Acetylcysteine 100 mg Q6HR NEB 10/13/24 18:00 10/16/24 11:55 100 MG Diagnostic Test (Pha) 1 strip ACHS 10/13/24 22:00 10/16/24 13:51 1 STRIP Insulin Human Regular ACHS SC 10/13/24 22:00 10/15/24 21:44 4 UNITS Dextrose 50 ml UD PRN IV 10/13/24 18:00 Apixaban 2.5 mg BID PO 10/14/24 22:00 10/16/24 13:50 2.5 MG Vancomycin HCl 200 ml @ 160 mls/hr Q18H IV 10/16/24 12:00 Laboratory Results Laboratory Tests 10/14/24 06:31 10/16/24 06:07 Urinalysis Test 10/12/24 17:52 Urine Color Light-yellow (Yellow) Urine Clarity Clear (Clear) Urine pH 6.0 (5.0-9.0) Urine Specific [place] 1.016 (1.001-1.035) Urine Protein Trace (Negative) H Urine Ketones Negative (Negative) Urine Blood 1+ /uL (Negative) H Urine Nitrite Negative (Negative) Urine Bilirubin Negative (Negative) Urine Urobilinogen Normal mg/dL (Negative) Urine Leukocyte Esterase Negative /uL (Negative) Urine RBC 4 /hpf (0 - 3) Urine Microscopic WBC 1 /HPF (0-3) Urine Squamous Epithelial Cells None seen /hpf (<5) Urine Bacteria None seen /hpf (None Seen) Urine Glucose Normal mg/dL (Normal) Microbiology Microbiology Date/Time Source Procedure Growth Status 10/14/24 06:31 Blood Blood Culture - Preliminary NO GROWTH AFTER 48 HOURS OF INCUBATION. Resulted Assessment/Plan Assessment/Plan # Sepsis - Abx - F/u Cultures # Bacteremia- S. aureus - Vanco IV - Repeat cultures - ECHO negative # s/p TAVR # DM2 A1c 7.1 - SSI Plan discussed with: Patient, Son My Orders Orders - DUTCH ALBERT MD Procedure Category Date Status Time Vancomycin 1gm/200ml PHA 10/16/24 In Process Pm 12:00 Vancomycin,Trough LAB 10/17/24 Verified 23:00 Vancomycin Per [facility] 10/15/24 In Process [facility] 18:21 Date of Service: Oct 16, 2024 Billing Provider: DUTCH ALBERT MD Common Visit Codes: 16023-SACCECPMOH INP/OBS CARE(HIGH) DUTCH ALBERT MD Oct 16, 2024 14:49
[2024-10-16] MEDS: VANCOMYCIN 1GM/200ML PM 200 ML IV SCH (15:55)
[2024-10-17] VITALS (13 sets, daily range): BP systolic 129–152; BP diastolic 52–77; PULSE 49–77; RESP 16–20; TEMP 97.7–98.7; O2SAT 93–100
[2024-10-17 06:59] LABS: Basophils # (auto) 0 10 ^3/uL (0-0.2); Basophils % (auto) 0.2 % (0.0-2.0); Eosinophils # (auto) 0.2 10 ^3/uL (0-0.8); Eosinophils % (auto) 2.3 % (0.0-7.0); Hematocrit 41.7 % (41.0-53.0); Hemoglobin 14.6 g/dL (13.5-17.5); Lymphocytes # (auto) 1.3 10 ^3/uL (0.4-5.4); Lymphocytes % (auto) 19.4 % (10.0-50.0); Mean Corpuscular Volume 85.7 fL (80.0-100.0); Monocytes # (auto) 0.8 10 ^3/uL (0-1.3); Monocytes % (auto) 11.3 % (0.0-12.0); Neutrophils # (auto) 4.5 10 ^3/uL (1.6-8.6); Neutrophils % (auto) 66.8 % (37.0-80.0); Nucleated Red Blood Cells % 0.1 %; Platelet Count (auto) 144 10^3/uL (140-450); Red Blood Cells 4.86 10^6/uL (4.5-5.90); Red Cell Distribution Width 14.3 % (11.8-14.3); White Blood Cell 6.8 10^3/uL (4.4-10.8)
[2024-10-17] MEDS ORDERED: AUG875T PO (16:27)
--- NOTE | 2024-10-17 16:29 | DVHDS2 ---
Discharge Summary Date of Admission October 12, 2024 at 21:37 Date of Discharge: Oct 17, 2024 Admitting Diagnosis Bacteremia Labs/Diagnostic Data: Laboratory Results Test 10/17/24 06:09 10/16/24 05:32 10/15/24 17:23 10/14/24 10:34 White Blood Count 6.8 10^3/uL (4.4-10.8) Red Blood Count 4.86 10^6/uL (4.5-5.90) Hemoglobin 14.6 g/dL (13.5-17.5) Hematocrit 41.7 % (41.0-53.0) Mean Corpuscular Volume 85.7 fL (80.0-100.0) Mean Corpuscular Hemoglobin 30.0 pg (28.0-32.0) Mean Corpuscular Hemoglobin Concent 35.0 g/dL (32.0-36.0) Red Cell Distribution Width 14.3 % (11.8-14.3) Platelet Count 144 10^3/uL (140-450) Mean Platelet Volume 9.0 fL (6.9-10.8) Neutrophils (%) (Auto) 66.8 % (37.0-80.0) Lymphocytes (%) (Auto) 19.4 % (10.0-50.0) Monocytes (%) (Auto) 11.3 % (0.0-12.0) Eosinophils (%) (Auto) 2.3 % (0.0-7.0) Basophils (%) (Auto) 0.2 % (0.0-2.0) Neutrophils # (Auto) 4.5 10 ^3/uL (1.6-8.6) Lymphocytes # (Auto) 1.3 10 ^3/uL (0.4-5.4) Monocytes # (Auto) 0.8 10 ^3/uL (0-1.3) Eosinophils # (Auto) 0.2 10 ^3/uL (0-0.8) Basophils # (Auto) 0 10 ^3/uL (0-0.2) Nucleated Red Blood Cells 0.1 % Creatinine 0.78 mg/dL (0.700-1.30) Glomerular Filtration Rate Calc 90 mL/min (>90) POC Glucose 114 mg/dl (70-106) Vancomycin Level Trough 7.7 ug/mL (5-10) Blood Gas Specimen Type Arterial Blood Gas Sample Site Right radial Blood Gas Patient Temperature 37.0 Arterial Blood Date Drawn [id number] Arterial Blood pH 7.410 (7.350-7.450) Arterial Blood Partial Pressure CO2 27.5 mmHg (35.0-48.0) Arterial Blood Partial Pressure O2 64.1 mmHg (83.0-108.0) Arterial Blood HCO3 17.0 mmol/L (21.0-28.0) Arterial Blood Oxygen Saturation 92.4 % (94.0-98.0) Arterial Blood Base Excess -5.8 mmol/L (-2.0-3.0) Arterial Blood Oxyhemoglobin 90.9 % (94.0-98.0) Arterial Blood Carboxyhemoglobin 1.4 % (0.5-1.5) Arterial Blood Methemoglobin 0.2 % (0.0-1.5) Eric Test Yes Blood Gas Total Hemoglobin 15.90 g/dL (13.5-17.5) Blood Gas Modality Room air FiO2 % 21.0 Test 10/14/24 06:31 10/13/24 07:40 10/12/24 21:49 10/12/24 21:13 Sodium Level 138 mmol/L (136-145) Potassium Level 3.4 mmol/L (3.5-5.1) Chloride Level 108 mmol/L (98-107) Carbon Dioxide Level 21 mmol/L (20-31) Anion Gap 9 (5-15) Blood Urea Nitrogen 16 mg/dL (9-23) BUN/Creatinine Ratio 15.8 (10.0-20.0) Serum Glucose 89 mg/dL (74-106) Calcium Level 9.4 mg/dL (8.7-10.4) Total Bilirubin 1.0 mg/dL (0.2-1.0) Aspartate Amino Transferase (AST) 42 U/L (13-40) Alanine Aminotransferase (ALT) 33 U/L (7-40) Alkaline Phosphatase 74 U/L (46-116) Total Protein 6.3 g/dL (5.7-8.2) Albumin 3.9 g/dL (3.2-4.8) Hemoglobin A1c 7.0 % A1C (<5.7) Influenza Type A Antigen Negative (Negative) Influenza Type B Antigen Negative (Negative) Troponin I High Sensitivity 12 ng/L (</=54) Test 5/29/25 18:42 10/12/24 18:18 10/12/24 17:52 SARS-CoV-2 Antigen (Rapid) Negative (NEGATIVE) Differential Total Cells Counted 100.0 (100) Neutrophils % (Manual) 83 (37.0-80.0) Band Neutrophils % (Manual) 3 Lymphocytes % (Manual) 5 (10.0-50.0) Monocytes % (Manual) 9 (0-12) Eosinophils % (Manual) 0 (0-7) Basophils % (Manual) 0 (0.0-2.0) Metamyelocytes % (manual) 0 Myelocytes % (Manual) 0 Promyelocytes % (Manual) 0 Blast Cells % (Manual) 0 Reactive Lymphocytes 0 Platelet Estimate Adequate Anisocytosis (manual) Slight Lactic Acid Level 2.0 mmol/L (0.4-2.0) Urine Color Light-yellow (Yellow) Urine Clarity Clear (Clear) Urine pH 6.0 (5.0-9.0) Urine Specific [place] 1.016 (1.001-1.035) Urine Protein Trace (Negative) Urine Ketones Negative (Negative) Urine Blood 1+ /uL (Negative) Urine Nitrite Negative (Negative) Urine Bilirubin Negative (Negative) Urine Urobilinogen Normal mg/dL (Negative) Urine Leukocyte Esterase Negative /uL (Negative) Urine RBC 4 /hpf (0 - 3) Urine Microscopic WBC 1 /HPF (0-3) Urine Squamous Epithelial Cells None seen /hpf (<5) Urine Bacteria None seen /hpf (None Seen) Urine Glucose Normal mg/dL (Normal) Other Laboratory Tests 10/17/24 06:09 10/14/24 06:31 Brief Hx & Hospital Course: Patient is a 79 year-old M admitted for sepsis due to Bacteremia. Cultures grew S. aureus. Patient was treated with Vancomycin IV, cultures now negative. Patient will be discharged home with Augmentin. Condition at Discharge: Stable Final Diagnosis/Problems List # Sepsis - Abx - F/u Cultures # Bacteremia- S. aureus - Augmentin - Repeat cultures - ECHO negative # s/p TAVR # DM2 A1c 7.1 - SSI Discharge Disposition: Home Discharge Instruct/Medications Diet: Consistent carbohydrate Activity: Light activity Follow Up/Referral: Dr. Gramajo Medications: Augmentin Discharge Statement: "Patient was advised to return to the ER or call 911 if any headaches, dizziness, shortness of breath, chest pain, abdominal pain, bleeding, fevers, or worsening of medical condition. Patient was counseled about treatment plan, medications, possible side effects, patientverbalized understanding. All questions were answered to the best of my ability. This discharge took greater then 30 minutes in planning, reviewing documentation, counseling the patient, and discussing with other team members." ASSESSMENT ASSESSMENT Assessment Date of Service: Oct 17, 2024 Billing Provider: DUTCH ALBERT MD Common Visit Codes: 41015-BBK/OBS DISCH DAY >30min DUTCH ALBERT MD Oct 17, 2024 16:29
== END 2024-10-17 17:05 | disposition home or self-care (01) | DRG 871 ==
LOC: ER 17:21 → OVERFLOW 21:37 → TELE-WESTW 23:55
PROVIDERS: ADMIT Internal Medicine; ATTEND Internal Medicine
PROC: B246ZZ4 Ultrasonography of Right and Left Heart, Transesophageal (ICD-10-PCS; principal; 2024-10-16)
DX: A41.9 Sepsis, unspecified organism (principal); J18.9 Pneumonia, unspecified organism; E11.65 Type 2 diabetes mellitus with hyperglycemia; I48.91 Unspecified atrial fibrillation; Z68.39 Body mass index [BMI] 39.0-39.9, adult; Z20.822 Contact with and (suspected) exposure to COVID-19; E66.9 Obesity, unspecified; E78.5 Hyperlipidemia, unspecified; K21.9 Gastro-esophageal reflux disease without esophagitis; Z96.643 Presence of artificial hip joint, bilateral; I08.0 Rheumatic disorders of both mitral and aortic valves; I10 Essential (primary) hypertension; Z79.01 Long term (current) use of anticoagulants; Z95.2 Presence of prosthetic heart valve
CPT/HCPCS: 36415; 36600; 71045; 71250; 80048; 80053; 80202; 81001; 82565; 82805; 82962; 83036; 83605; 84484; 85007; 85025; 85027; 87040; 87077; 87186; 87426; 87804; 93005; 93306; 93312; 94640; 96365; 96375; 97163; 99152; 99291; G0378; J1815; J2250; J3490

== ENCOUNTER 2025-01-17 07:43 | Outpatient (CLI) | payer OTHER, MEDICAID ==
[~2025-01-17 07:43] MED LIST changes: +AUG875T PO; -CEPH500C PO; -PHENERGAN
[2025-01-17 08:33] LABS: Hematocrit 44.8 % (41.0-53.0); Hemoglobin 15.7 g/dL (13.5-17.5); Mean Corpuscular Hemoglobin 30.1 pg (28.0-32.0); Mean Corpuscular Volume 85.8 fL (80.0-100.0); Nucleated Red Blood Cells % 0.1 %
[2025-01-17 08:43] LABS: Urine Protein, UAD Negative (Negative)
[2025-01-17 08:45] LABS: Alanine Aminotransferase 21 U/L (7-40); Albumin 4.2 g/dL (3.2-4.8); Alkaline Phosphatase 95 U/L (46-116); Anion Gap 9 (5-15); BUN/Creatinine Ratio 15.3 (10.0-20.0); Blood Urea Nitrogen 21 mg/dL (9-23); Calcium 9.4 mg/dL (8.7-10.4); Carbon Dioxide 26 mmol/L (20-31); Microalb/Creat Ratio, Urine 40.0; Potassium 4.8 mmol/L (3.5-5.1); Sodium 144 mmol/L (136-145); Total Protein 7.0 g/dL (5.7-8.2); Triglycerides 118 mg/dL (< 150)
[2025-01-17 08:46] LABS: Bilirubin, Total 0.9 mg/dL (0.2-1.0); Cholesterol 124 mg/dL (< 200)
[2025-01-17 08:48] LABS: Prostate Specific Antigen 2.46 ng/mL (0.0-4.0)
[2025-01-17 08:49] LABS: Chloride 109 mmol/L (98-107); Glucose 152 mg/dL (74-106); HDL Cholesterol 37 mg/dL (40-59)
[2025-01-17 08:57] LABS: Free T4 (Free Thyroxine) 1.18 ng/dL (0.89-1.76)
[2025-01-17 08:58] LABS: Uric Acid 6.4 mg/dL (3.7-9.2)
== END 2025-01-17 17:00 | disposition home or self-care (01) ==
LOC: LAB 07:43
PROVIDERS: ATTEND Internal Medicine
DX: I10 Essential (primary) hypertension (principal); E11.9 Type 2 diabetes mellitus without complications; Z79.899 Other long term (current) drug therapy
CPT/HCPCS: 36415; 80053; 80061; 81001; 82043; 82570; 82607; 83036; 84153; 84439; 84443; 84550; 85025; 85652

== ENCOUNTER 2025-03-15 08:13 | Outpatient (CLI) | payer OTHER, MEDICAID ==
[2025-03-15 08:57] LABS: Hematocrit 43.9 % (41.0-53.0); Hemoglobin 15.0 g/dL (13.5-17.5); Mean Corpuscular Hemoglobin 29.8 pg (28.0-32.0); Mean Corpuscular Volume 87.4 fL (80.0-100.0); Nucleated Red Blood Cells % 0.1 %
[2025-03-15 08:58] LABS: Urine Protein, UAD TRACE (Negative)
[2025-03-15 09:11] LABS: INR 1.11 (0.9-1.15); Prothrombin Time 11.6 sec (9.3-11.8)
[2025-03-15 09:19] LABS: Alanine Aminotransferase 15 U/L (7-40); Albumin 4.2 g/dL (3.2-4.8); Alkaline Phosphatase 78 U/L (46-116); Anion Gap 9 (5-15); BUN/Creatinine Ratio 13.1 (10.0-20.0); Blood Urea Nitrogen 18 mg/dL (9-23); Calcium 9.5 mg/dL (8.7-10.4); Carbon Dioxide 26 mmol/L (20-31); Potassium 4.4 mmol/L (3.5-5.1); Sodium 143 mmol/L (136-145); Total Protein 7.0 g/dL (5.7-8.2)
[2025-03-15 09:20] LABS: Bilirubin, Total 0.9 mg/dL (0.2-1.0)
[2025-03-15 09:21] LABS: Chloride 108 mmol/L (98-107); Glucose 56 mg/dL (74-106)
== END 2025-03-15 17:00 | disposition home or self-care (01) ==
LOC: LAB 08:13
PROVIDERS: ATTEND Internal Medicine
DX: Z01.812 Encounter for preprocedural laboratory examination (principal); I10 Essential (primary) hypertension; E11.9 Type 2 diabetes mellitus without complications
CPT/HCPCS: 36415; 80053; 81001; 85025; 85610